=== PATIENT | male | born 1955 | race Caucasian/White ===

== ENCOUNTER 2016-12-10 21:09 | Observation (INO) | payer OTHER ==
[~2016-12-10] VITALS: Ht 182.9 cm; Wt 77.0 kg
[2016-12-10 21:15] VITALS: BP 117/72; PULSE 102; RESP 16; TEMP 97.5; O2SAT 95
[2016-12-11] VITALS (13 sets, daily range): BP systolic 109–146; BP diastolic 55–92; PULSE 66–156; RESP 12–28; TEMP 97.7–98.6; O2SAT 94–97
[2016-12-11] MEDS ORDERED: SODIUM CHLOR 0.9% 1000 ML INJ 1,000 ML IV ONE (02:26)
[2016-12-11] MEDS ORDERED: DILTIAZEM INJ 125 MG in SODIUM CHLORIDE 0.9% INJ 100 ML IV SCH (02:30)
[2016-12-11] MEDS ORDERED: SODIUM CHLORIDE 0.9% FLUSH 5 ML FLUSH IVF PRN ×3 (02:30→07:15)
[2016-12-11] MEDS ORDERED: DILTIAZEM HCL 25 MG/5 ML VIAL IV PUSH ONE (02:30)
[2016-12-11] MEDS ORDERED: ONDANSETRON HCL 4 MG/2 ML VIAL IVP ONE (02:30)
[2016-12-11 02:53] LABS: AUTOMATED NEUTROPHIL # 2.6 TH/MM3 (1.8-7.7); BASOPHIL % 0.4 % (0.0-2.0); EOSINOPHIL # 0.2 TH/MM3 (0-0.4); EOSINOPHIL % 1.9 % (0.0-4.0); HEMATOCRIT 47.3 % (39.0-51.0); HEMO FLAGS AUTO DIFF; LYMPH % 61.7 % (9.0-44.0); MEAN CELL VOLUME 96.4 FL (80.0-100.0); MEAN CORPUSCULAR HEMOGLOBIN 34.2 PG (27.0-34.0); MEAN CORPUSCULAR HGB CONC 35.4 % (32.0-36.0); MONO % 4.4 % (0.0-8.0); NEUT % 31.6 % (16.0-70.0); PLATELET COUNT 153 TH/MM3 (150-450); RED BLOOD COUNT 4.91 MIL/MM3 (4.50-5.90); RED CELL DISTRIBUTION WIDTH 13.4 % (11.6-17.2); WHITE BLOOD COUNT 8.1 TH/MM3 (4.0-11.0)
[2016-12-11 03:14] LABS: ALT (GPT) 76 U/L (12-78); ANION GAP 11 MEQ/L (5-15); AST (GOT) 73 U/L (15-37); BICARBONATE 22.8 MEQ/L (21.0-32.0); BLOOD UREA NITROGEN 4 MG/DL (7-18); CHLORIDE 102 MEQ/L (98-107); GLOMERULAR FILTRATION RATE 91 ML/MIN (>89); MAGNESIUM 1.9 MG/DL (1.5-2.5); POTASSIUM 3.8 MEQ/L (3.5-5.1); SODIUM (NA) 136 MEQ/L (136-145)
[2016-12-11 03:17] LABS: ALKALINE PHOSPHATASE 117 U/L (45-117); TOTAL BILIRUBIN ADULT 0.6 MG/DL (0.2-1.0)
[2016-12-11 03:24] LABS: BASOPHILS 1 % (0-2); EOSINOPHILS 1 % (0-4); NEUTROPHIL # MANUAL DIFF 2.3 TH/MM3 (1.8-7.7); POLYS (SEG NEUTROPHILS) 28 % (16-70); WBC DIFF SAMPLE 100
[2016-12-11 03:25] LABS: SCAN/DIFF FINAL DIFF MANUAL
[2016-12-11 03:26] LABS: PLATELET ESTIMATE SMEAR NORMAL (NORMAL); PLATELET MORPHOLOGY NORMAL (NORMAL)
--- NOTE | 2016-12-11 03:30 | RADRPT ---
EXAM DATE/TIME: 12/11/2016 02:53 [place] COMPARISON: CT BRAIN W/O CONTRAST, October 26, 2013, 22:40. INDICATIONS : Headaches with right ear pain. RADIATION DOSE: 39.05 CTDIvol (mGy) MEDICAL HISTORY : None SURGICAL HISTORY : None. ENCOUNTER: Initial ACUITY: 1 day PAIN SCALE: 7/10 LOCATION: Right cranial TECHNIQUE: Multiple contiguous axial images were obtained of the head. Using automated exposure control and adj ustment of the mA and/or kV according to patient size, radiation dose was kept as low as reasonably a chievable to obtain optimal diagnostic quality images. FINDINGS: CEREBRUM: The ventricles are normal for age. No evidence of midline shift, mass lesion, hemorrhage or acute in farction. No extra-axial fluid collections are seen. POSTERIOR FOSSA: The cerebellum and brainstem are intact. The 4th ventricle is midline. The cerebellopontine angle i s unremarkable. EXTRACRANIAL: Visualized portions of the paranasal sinuses and mastoid air cells are clear. SKULL: The calvaria is intact. No evidence of skull fracture. CONCLUSION: Negative noncontrast head CT. Ricky Jean MD on December 11, 2016 at 3:27 Board Certified Radiologist. This report was verified electronically.
--- NOTE | 2016-12-11 06:24 | PD ---
HPI Chief Complaint: Headache Time Seen by Provider: 02:26 Travel History International Travel<30 days: No Contact w/Intl Traveler<30days: No Traveled to known affect area: No History of Present Illness HPI 61-year-old male presents to the emergency department for complaint of headache 2 weeks. Patient states he had slip and fall backwards hitting his head with loss of consciousness. Patient estimates loss of consciousness was about 30 seconds. Episode was witnessed. There was no seizure activity. Patient has had nausea subsequently. Patient is drinking alcohol daily. Patient's last alcohol intake was on Saturday morning. Patient is not been tremulous or agitated but does have headache and presents now for evaluation. Patient denies any recent febrile illness but has been fatigued. Patient does not report any cough hemoptysis chest pain pleuritic chest pain abdominal pain night sweats or weight loss. PFSH Past Medical History Narrative Medical Asthma peptic ulcer disease tobacco use alcohol use Asthma: Yes Blood Disorders: No Anxiety: No Depression: No Cancer: No Cardiovascular Problems: No Chemotherapy: No Diabetes: No Diminished Hearing: No Endocrine: No Genitourinary: No Immune Disorder: No Implanted Vascular Access Dvce: No Musculoskeletal: Yes Neurologic: Yes Psychiatric: No Reproductive: No Respiratory: No Radiation Therapy: No Thyroid Disease: No Ulcer: Yes Tetanus Vaccination: < 5 Years Influenza Vaccination: Yes Past Surgical History Other Surgery: No Social History Alcohol Use: Yes (DAILY) Tobacco Use: Yes (3 PPD ) Substance Use: Yes Allergies-Medications (Allergen,Severity, Reaction): Coded Allergies: *MDRO Multi-Drug Resistant Organism (Verified Allergy, Unknown, 12/10/16) MRSA Reported Meds & Prescriptions Reported Meds & Active Scripts Active No Active Prescriptions or Reported Medications Review of Systems Except as stated in HPI: all other systems reviewed are Neg General / Constitutional: No: Fever, Chills HENT: Positive: Headaches, No: Congestion Cardiovascular: No: Chest Pain or Discomfort, Palpitations Respiratory: No: Cough Gastrointestinal: Positive: Nausea, No: Vomiting, Diarrhea, Abdominal Pain Genitourinary: No: Incontinence Musculoskeletal: No: Myalgias, Arthralgias Skin: No Rash Neurologic: No: Weakness, Dizziness Psychiatric: No: Anxiety Hematologic/Lymphatic: No: Lymph Node Enlargement Physical Exam Narrative GENERAL: Well-developed well-nourished elderly-appearing male in no acute respiratory distress SKIN: Warm and dry. HEAD: Atraumatic. Normocephalic. No scalp soft tissue swelling or hematoma abrasion or laceration. EYES: Pupils equal and round. No scleral icterus. No injection or drainage. ENT: No nasal bleeding or discharge. Mucous membranes pink and moist. NECK: Trachea midline. No JVD. Supple no meningismus no nuchal rigidity no tenderness to direct palpation CARDIOVASCULAR: Increased Regular rate and rhythm. RESPIRATORY: No accessory muscle use. Clear to auscultation. Breath sounds equal bilaterally. GASTROINTESTINAL: Abdomen soft, non-tender, nondistended. Hepatic and splenic margins not palpable. MUSCULOSKELETAL: Extremities without clubbing, cyanosis, or edema. No obvious deformities. NEUROLOGICAL: Awake and alert. No obvious cranial nerve deficits. Motor grossly within normal limits. Five out of 5 muscle strength in the arms and legs. Normal speech. PSYCHIATRIC: Appropriate mood and affect; insight and judgment normal. Data Data Last Documented VS Vital Signs Date Time Temp Pulse Resp B/P Pulse Ox O2 Delivery O2 Flow Rate FiO2 12/11/16 06:35 71 12 124/58 95 Room Air 12/11/16 02:15 97.7 12/11/16 02:15 2 Orders Complete Blood Count With Diff (12/11/16 02:26) Comprehensive Metabolic Panel (12/11/16 02:26) Ct Brain W/O Iv Contrast(Rout) (12/11/16 02:26) Ecg Monitoring (12/11/16 02:26) Iv Access Insert/Monitor (12/11/16 02:26) Oximetry (12/11/16 02:26) Sodium Chloride 0.9% Flush (Ns Flush) (12/11/16 02:30) Ondansetron Inj (Zofran Inj) (12/11/16 02:30) Sodium Chlor 0.9% 1000 Ml Inj (Ns 1000 M (12/11/16 02:26) Magnesium (Mg) (12/11/16 02:26) Alcohol (Ethanol) (12/11/16 02:26) Drug Screen, Random Urine (12/11/16 02:26) Electrocardiogram (12/11/16 ) Troponin I (12/11/16 02:26) Diltiazem Inj (Cardizem Inj) (12/11/16 02:30) Diltiazem Inj (Cardizem Inj) (12/11/16 02:30) Sodium Chloride 0.9% Flush (Ns Flush) (12/11/16 02:30) Influenzae A/B Antigen (12/11/16 05:41) Place In Observation (12/11/16 ) Vital Signs (Adult) Q4H (12/11/16 06:57) Activity Oob With Assistance (12/11/16 06:57) Inclusion Specialist / Telemetry .CONTINUOUS (12/11/16 06:57) Diet Heart Healthy (12/11/16 Breakfast) Sodium Chloride 0.9% Flush (Ns Flush) (12/11/16 07:00) Sodium Chloride 0.9% Flush (Ns Flush) (12/11/16 09:00) Ondansetron Inj (Zofran Inj) (12/11/16 07:00) Basic Metabolic Panel (Bmp) (12/12/16 06:00) Complete Blood Count With Diff (12/12/16 06:00) Case Management Consult (12/11/16 06:57) Naloxone Inj (Narcan Inj) (12/11/16 07:00) Alcohol Withdrawal Asmt-Ciwa Q4HX18 (12/11/16 06:57) Flumazenil Inj (Romazicon Inj) (12/11/16 07:00) Lorazepam (Ativan) (12/11/16 07:00) Lorazepam Inj (Ativan Inj) (12/11/16 07:00) Lorazepam (Ativan) (12/11/16 07:00) Lorazepam Inj (Ativan Inj) (12/11/16 07:00) Lorazepam Inj (Ativan Inj) (12/11/16 07:00) Lorazepam Inj (Ativan Inj) (12/11/16 07:00) Labs Laboratory Tests Test 12/11/16 02:35 White Blood Count 8.1 TH/MM3 Red Blood Count 4.91 MIL/MM3 Hemoglobin 16.8 GM/DL Hematocrit 47.3 % Mean Corpuscular Volume 96.4 FL Mean Corpuscular Hemoglobin 34.2 PG Mean Corpuscular Hemoglobin 35.4 % Concent Red Cell Distribution Width 13.4 % Platelet Count 153 TH/MM3 Mean Platelet Volume 8.5 FL Neutrophils (%) (Auto) 31.6 % Lymphocytes (%) (Auto) 61.7 % Monocytes (%) (Auto) 4.4 % Eosinophils (%) (Auto) 1.9 % Basophils (%) (Auto) 0.4 % Neutrophils # (Auto) 2.6 TH/MM3 Lymphocytes # (Auto) 5.0 TH/MM3 Monocytes # (Auto) 0.4 TH/MM3 Eosinophils # (Auto) 0.2 TH/MM3 Basophils # (Auto) 0.0 TH/MM3 CBC Comment AUTO DIFF Differential Total Cells 100 Counted Neutrophils % (Manual) 28 % Lymphocytes % 69 % Monocytes % 1 % Eosinophils % 1 % Basophils % 1 % Neutrophils # (Manual) 2.3 TH/MM3 Differential Comment FINAL DIFF MANUAL Atypical Lymphocytes % Platelet Estimate NORMAL Platelet Morphology Comment NORMAL Red Cell Morphology Comment NORMAL Sodium Level 136 MEQ/L Potassium Level 3.8 MEQ/L Chloride Level 102 MEQ/L Carbon Dioxide Level 22.8 MEQ/L Anion Gap 11 MEQ/L Blood Urea Nitrogen 4 MG/DL Creatinine 0.86 MG/DL Estimat Glomerular Filtration 91 ML/MIN Rate Random Glucose 127 MG/DL Calcium Level 8.9 MG/DL Magnesium Level 1.9 MG/DL Total Bilirubin 0.6 MG/DL Aspartate Amino Transf 73 U/L (AST/SGOT) Alanine Aminotransferase 76 U/L (ALT/SGPT) Alkaline Phosphatase 117 U/L Troponin I LESS THAN 0.02 NG/ML Total Protein 7.8 GM/DL Albumin 4.1 GM/DL Ethyl Alcohol Level 66 MG/DL MDM Medical Decision Making Medical Screen Exam Complete: Yes Emergency Medical Condition: Yes Medical Record Reviewed: Yes Interpretation(s) Last Impressions Head CT 12/11/16 0226 Signed Impressions: Service Date/Time: Sunday, December 11, 2016 02:53 - CONCLUSION: Negative noncontrast head CT. Ricky Jean MD CBC & BMP Diagram 12/11/16 02:35 Differential Diagnosis Cephalgia, posttraumatic cephalgia, ICH, CHI, alcohol withdrawal, electronic disturbance, anemia, viral syndrome Narrative Course Patient placed on traffic monitor specialist noted to be in marked SVT of 170 IV access obtained specimens collected patient administered weight-based Cardizem 0.25 mg/kg with immediate resolution of SVT; patient administered IV fluids posttraumatic cephalgia minor CHI ICH viral syndrome dehydration alcohol withdrawal As 6:40 AM blood pressure 12/04/57 heart rate 71 and regular sinus rhythm O2 saturations 95% respirations 12 and nonlabored Physician Communication Physician Communication discussed with Dr Casanova --will admit as obs Diagnosis Primary Impression: Lymphocytosis Additional Impressions: Acute viral syndrome Alcoholism /alcohol abuse Post-traumatic headache, not intractable Qualified Code: G44.309 - Post-traumatic headache, not intractable, unspecified chronicity pattern Scripts No Active Prescriptions or Reported Meds Zahida Umaña MD Dec 11, 2016 06:24
[2016-12-11] MEDS ORDERED: LORazepam 2 MG TAB PO PRN ×2 (07:00→07:15)
[2016-12-11] MEDS ORDERED: LORazepam 1 MG TAB PO PRN ×2 (07:00→07:15)
[2016-12-11] MEDS ORDERED: NALOXONE HCL 0.4 MG/ML AMP IV PRN (07:00)
[2016-12-11] MEDS ORDERED: ONDANSETRON HCL 4 MG/2 ML VIAL IVP PRN (07:00)
[2016-12-11] MEDS ORDERED: LORazepam 2 MG/ML VIAL IV PUSH PRN ×8 (07:00→07:15)
[2016-12-11] MEDS ORDERED: FLUMAZENIL 0.5 MG/5 ML VIAL IV PUSH PRN ×2 (07:00→07:15)
[2016-12-11] MEDS ORDERED: SODIUM CHLORIDE 0.9% FLUSH 5 ML FLUSH FLUSH PRN (07:00)
[2016-12-11] MEDS ORDERED: THIAMINE INJ 100 MG in SODIUM CHLORIDE 0.9% INJ 100 ML IV ONE (09:00)
[2016-12-11] MEDS ORDERED: SODIUM CHLORIDE 0.9% FLUSH 5 ML FLUSH IVF SCH (09:00)
[2016-12-11] MEDS: SODIUM CHLORIDE 0.9% FLUSH 5 ML FLUSH FLUSH SCH ×2 (09:29→23:43)
[2016-12-11] MEDS ORDERED: DILTIAZEM-CD 120 MG CAP ER PO ONE (12:00)
--- NOTE | 2016-12-11 15:17 | EKG ---
Date Performed: 12/11/2016 Time Performed: 02:19:59 PTAGE: 61 years EKG: SUPRAVENTRICULAR TACHYCARDIA WITH OCCASIONAL PREMATURE VENTRICULAR CONTRACTIONS. THE RHYTHM IS PROBABLY ATRIAL FLUTTER WITH 2-1 CONDUCTION, BUT A RHYTHM STRIP WOULD BE NECESSARY TO MAKE AN ACC URATE DIAGNOSIS. PREMATURE COMPLEXES, POSSIBLE ATRIAL FLUTTER WITH MINIMAL ST DEPRESSION SINCE THE UT IOR TRACING THE RHYTHM DISTURBANCES IS NEW. PATIENT DEVELOPED INFERIOR ST ELEVATION THAT IS ALSO NEW AND INFERIOR WALL INJURY WITH TACHYCARDIA CANNOT BE EXCLUDED. Clinical correlation is recommended to access the series of changes ABNORMAL RHYTHM ECG NO PREVIOUS TRACING DOCTOR: Marquita Ferrara Interpretating Date/Time 12/11/2016 15:16:54
--- NOTE | 2016-12-11 23:53 | HHI.HP ---
[facility] Ad[facility] Diagnosis lymphocytosis; svt; alcohol abuse Diagnoses: Travel History International Travel<30 Days: No Contact w/Intl Traveler <30 Da: No Traveled to Known Affected Are: No History of Present Illness 61-year-old male with a chronic history of alcoholism. He says he passed out at a bar last night and fell to the floor, had been drinking heavily. He says he hit his head, but is not sure where. He reports several month history of poor balance, either walking to one side, or the other. He denies any seizures. Patient drinks two to 4 packs of beer a day. He denies any unilateral weakness. No focal signs. Patient does report a frontal headache which is improving. Denies blurry vision. Denies any chest pain or shortness of breath. Patient did have episode of SVT in the ER which was controlled with diltiazem. Review of Systems Other performed and negative except for HPI and past medical history. Past Family Social History Past Medical History Patient denies any medical conditions, however per chart review has history of asthma, ulcer Past Surgical History reports surgery to her left arm in the past. Denies any other surgeries. Per chart review patient also had surgery on his left ankle. Reported Medications patient denies taking any medications. Allergies: Coded Allergies: *MDRO Multi-Drug Resistant Organism (Verified Allergy, Unknown, 12/10/16) MRSA Family History Patient reports both father and mother from aneurysm Social History Patient reports smoking 3 packs per day for the past 40 years. Patient drinks to 4 packs of beer every day. He denies any history of seizures. Patient does report marijuana use occasionally. Physical Exam Vital Signs Vital Signs Date Time Temp Pulse Resp B/P Pulse Ox O2 Delivery O2 Flow Rate FiO2 12/11/16 23:27 98.6 69 20 117/65 95 12/11/16 19:50 94 21 12/11/16 18:15 98.5 110 18 146/72 95 12/11/16 18:14 66 12/11/16 13:00 72 20 127/57 96 12/11/16 11:00 100 18 136/60 97 12/11/16 10:15 97 Nasal Cannula 2.00 12/11/16 09:30 75 12 135/61 97 Room Air 12/11/16 07:46 98.4 78 16 109/55 97 Nasal Cannula 2 12/11/16 06:35 71 12 124/58 95 Room Air 12/11/16 06:00 74 18 110/70 97 Room Air 12/11/16 02:15 97.7 156 28 139/92 94 Room Air 12/11/16 02:15 28 95 Nasal Cannula 2 12/11/16 02:15 154 28 94 Room Air Physical Exam GENERAL: This is a well-nourished, well-developed patient. 60 while sleeping. 120 while awake. Alert and oriented 3. SKIN: No rashes, ecchymoses or lesions. Cool and dry. HEAD: Atraumatic. Normocephalic. No temporal or scalp tenderness. EYES: Pupils equal round and reactive. Extraocular motions intact. No scleral icterus. No injection or drainage. ENT: Nose without bleeding, purulent drainage or septal hematoma. Throat without erythema, tonsillar hypertrophy or exudate. Uvula midline. Airway patent. NECK: Trachea midline. No JVD or lymphadenopathy. Supple, nontender, no meningeal signs. CARDIOVASCULAR: Regular rate and rhythm without murmurs, gallops, or rubs. RESPIRATORY: Clear to auscultation. Breath sounds equal bilaterally. No wheezes , rales, or rhonchi. GASTROINTESTINAL: Abdomen soft, non-tender, nondistended. No hepato-splenomegaly , or palpable masses. No guarding. MUSCULOSKELETAL: Extremities without clubbing, cyanosis, or edema. No joint tenderness, effusion, or edema noted. No calf tenderness. Negative Homans sign bilaterally. NEUROLOGICAL: Awake and alert. Cranial nerves II through XII intact. Motor and sensory grossly within normal limits. Five out of 5 muscle strength in all muscle groups. slight ataxia bilaterally.Normal speech. Laboratory Laboratory Tests Test 12/11/16 02:35 White Blood Count 8.1 Red Blood Count 4.91 Hemoglobin 16.8 Hematocrit 47.3 Mean Corpuscular Volume 96.4 Mean Corpuscular Hemoglobin 34.2 Mean Corpuscular Hemoglobin 35.4 Concent Red Cell Distribution Width 13.4 Platelet Count 153 Mean Platelet Volume 8.5 Neutrophils (%) (Auto) 31.6 Lymphocytes (%) (Auto) 61.7 Monocytes (%) (Auto) 4.4 Eosinophils (%) (Auto) 1.9 Basophils (%) (Auto) 0.4 Neutrophils # (Auto) 2.6 Lymphocytes # (Auto) 5.0 Monocytes # (Auto) 0.4 Eosinophils # (Auto) 0.2 Basophils # (Auto) 0.0 CBC Comment AUTO DIFF Differential Total Cells 100 Counted Neutrophils % (Manual) 28 Lymphocytes % 69 Monocytes % 1 Eosinophils % 1 Basophils % 1 Neutrophils # (Manual) 2.3 Differential Comment FINAL DIFF MANUAL Atypical Lymphocytes Platelet Estimate NORMAL Platelet Morphology Comment NORMAL Red Cell Morphology Comment NORMAL Sodium Level 136 Potassium Level 3.8 Chloride Level 102 Carbon Dioxide Level 22.8 Anion Gap 11 Blood Urea Nitrogen 4 Creatinine 0.86 Estimat Glomerular Filtration 91 Rate Random Glucose 127 Calcium Level 8.9 Magnesium Level 1.9 Total Bilirubin 0.6 Aspartate Amino Transf 73 (AST/SGOT) Alanine Aminotransferase 76 (ALT/SGPT) Alkaline Phosphatase 117 Troponin I LESS THAN 0.02 Total Protein 7.8 Albumin 4.1 Ethyl Alcohol Level 66 Date/Time Procedure Status Source Growth 12/11/16 05:45 Influenza Types A,B Antigen (PIETRO) - Final Complete Nasal Washing NEGATIVE FOR FLU A AND B ANTIGEN.... Result Diagram: 12/11/1623412/11/16234 Assessment and Plan Assessment and Plan //Fall at bar. //Mild ataxia. Likely alcohol induced. Continue thiamine The Likely secondary to inebriation. Per report this may have been a slip and fall. Patient with a little recollection. CT head negative. Headache improving. Supportive care Alcoholism With possible alcohol withdrawalCIWA protocol. Schedule Librium. Continue to monitor Supraventricular tachycardia. Oddly enough, normal heart rate while sleeping, elevated when awake. Possibly secondary to anxiety. Improved after diltiazem in the ER. Will continue 120 mg of long-acting diltiazem daily. Expect heart rate to improve with treatment of alcohol withdrawal. Tobacco abuse. Cessation counseling provided. Strongly advised Marijuana abuse. Cessation strongly advised Prophylaxis. Patient is ambulatory. SCDs. Discussed Condition With patient still with intermittent tachycardia up to 130s, however in the 60s while asleep. Continue diltiazem. Continue Librium. Possible discharge tomorrow if vital signs stable Rob Bridges MD Dec 11, 2016 23:53
[2016-12-12] MEDS ORDERED: chlordiazePOXIDE 25 MG CAP PO PRN
[2016-12-12 03:17] LABS: AMPHETAMINE, URINE NEG (NEG); BARBITURATES, URINE NEG (NEG); COCAINE, URINE NEG (NEG)
[2016-12-12 03:37] VITALS: BP 109/61; PULSE 54; RESP 18; TEMP 98.6; O2SAT 96
[2016-12-12 06:44] LABS: AUTOMATED NEUTROPHIL # 1.8 TH/MM3 (1.8-7.7); BASOPHIL % 0.8 % (0.0-2.0); EOSINOPHIL # 0.1 TH/MM3 (0-0.4); EOSINOPHIL % 1.8 % (0.0-4.0); HEMATOCRIT 41.8 % (39.0-51.0); HEMO FLAGS DIFF FINAL; LYMPH % 59.4 % (9.0-44.0); LYMPHOCYTE # 3.3 TH/MM3 (1.0-4.8); MEAN CELL VOLUME 98.2 FL (80.0-100.0); MEAN CORPUSCULAR HEMOGLOBIN 33.1 PG (27.0-34.0); MEAN CORPUSCULAR HGB CONC 33.7 % (32.0-36.0); MONO % 6.3 % (0.0-8.0); NEUT % 31.7 % (16.0-70.0); PLATELET COUNT 115 TH/MM3 (150-450); RED BLOOD COUNT 4.26 MIL/MM3 (4.50-5.90); RED CELL DISTRIBUTION WIDTH 13.1 % (11.6-17.2); WHITE BLOOD COUNT 5.6 TH/MM3 (4.0-11.0)
[2016-12-12 07:09] LABS: POTASSIUM 3.8 MEQ/L (3.5-5.1)
[2016-12-12 07:26] VITALS: PULSE 66
[2016-12-12] MEDS: SODIUM CHLORIDE 0.9% FLUSH 5 ML FLUSH FLUSH SCH (08:35)
[2016-12-12 08:47] VITALS: BP 124/62; PULSE 57; RESP 18; TEMP 97; O2SAT 97
[2016-12-12] MEDS ORDERED: DILTIAZEM-CD 120 MG CAP ER PO SCH (09:00)
[2016-12-12 09:15] VITALS: O2SAT 97
[2016-12-12] MEDS ORDERED: INFLUENZA VIRUS VACCINE (QUADRIVALENT) 0.5 ML SYR IM ONE (10:00)
[2016-12-12] MEDS ORDERED: PNEUMOCOCCAL POLYVALENT INJ 25 MCG/0.5 ML SYR IM ONE (10:00)
--- NOTE | 2016-12-12 10:19 | HHI.PR ---
Subjective Remarks Follow-up for fall and a CT. The patient does have a mild frontal headache from where he struck his head. He denies any weakness, tremor, vision changes. He's been ambulating to the restroom with no difficulties. He states that he had been having palpitations, improved since starting on Cardizem. He states he has a chronic cough, and is a little short of breath. Feels comfortable going home today. Objective Vitals Vital Signs Date Time Temp Pulse Resp B/P Pulse Ox O2 Delivery O2 Flow Rate FiO2 12/12/16 09:15 97 21 12/12/16 08:47 97.0 57 18 124/62 97 12/12/16 03:37 98.6 54 18 109/61 96 12/11/16 23:27 98.6 69 20 117/65 95 12/11/16 23:00 69 12/11/16 19:50 94 21 12/11/16 18:15 98.5 110 18 146/72 95 12/11/16 18:14 66 12/11/16 13:00 72 20 127/57 96 12/11/16 11:00 100 18 136/60 97 Result Diagram: 12/12/16 0605 12/12/16 0605 Imaging Last Impressions Head CT 12/11/16 0226 Signed Impressions: Service Date/Time: Sunday, December 11, 2016 02:53 - CONCLUSION: Negative noncontrast head CT. Ricky Jean MD Objective Remarks GENERAL: Well-developed well-nourished. In no acute distress. SKIN: Warm and dry. No lesions noted. HEENT: Normocephalic. Pupils equal and round. EOMs intact. Mucous membranes pink and moist. CARDIOVASCULAR: Regular rate and rhythm. No murmur appreciated. RESPIRATORY: No accessory muscle use. Clear to auscultation. Breath sounds equal bilaterally. GASTROINTESTINAL: Abdomen soft, non-tender, nondistended. Bowel sounds x4. MUSCULOSKELETAL: No obvious deformities. No clubbing or cyanosis. No edema. NEUROLOGICAL: Awake and alert. No focal neurological deficits. Moves upper and lower extremities spontaneously. Normal speech. Strength 5/5. PSYCHIATRIC: Appropriate mood and affect; insight and judgment normal. A/P Assessment and Plan //Fall at bar while intoxicated. //Mild ataxia. Likely alcohol induced. Improved today the patient is sober. CT head negative. Headache improving. Thiamine Supportive care Alcoholism No signs of withdrawal at this time. CIWA protocol. Cessation counseling Supraventricular tachycardia: Telemetry reviewed. Improved overnight after starting on Cardizem yesterday. Continue Cardizem. Outpatient PCP follow-up. Cough, shortness of breath: Mild. Satting well on room air. Lungs clear. Afebrile with no leukocytosis. No signs of infectious etiology. Likely secondary to chronic tobacco abuse, needs cessation. Tobacco abuse: Cessation counseling provided. Prophylaxis. Patient is ambulatory. SCDs. Written by Andrea Aguayo, acting as scribe for Dr. Bishop on 12/12/16 at 10:18. The documentation accurately reflects the work performed [id number] by me Dr. Bishop on 12/12/16 at 10:18. Discharge Planning Discharge patient to home Condition on discharge: Improved Heart healthy Diet as tolerated Regular activity Rx written: Cardizem, thiamine Follow-up with primary care physician Andrea Aguayo Dec 12, 2016 10:19 Vilma Bishop MD Dec 12, 2016 13:32
[2016-12-12] MEDS ORDERED: CARD120C4 PO (10:20)
[2016-12-12] MEDS ORDERED: THIA100T PO (10:20)
[2016-12-12] MEDS ORDERED: THIAMINE HCL 100 MG TAB PO ONE (11:00)
[2016-12-12 11:34] VITALS: BP 144/88; PULSE 94; RESP 18; TEMP 98.3; O2SAT 95
[2016-12-12 12:08] VITALS: BP 126/62; PULSE 57; RESP 18; TEMP 98; O2SAT 98
== END 2016-12-12 19:55 | disposition home or self-care (01) ==
LOC: NEPC 21:09 → NEDA 12-11 07:10 → NEPHCDU 12-11 13:17
PROVIDERS: ADMIT Hospitalist; ATTEND Hospitalist
DX: G44.309 Post-traumatic headache, unspecified, not intractable (principal); F10.239 Alcohol dependence with withdrawal, unspecified; D72.820 Lymphocytosis (symptomatic); I47.1 Supraventricular tachycardia; W01.0XXA Fall on same level from slipping, tripping and stumbling without subsequent striking against object, initial encounter; R11.0 Nausea; J45.909 Unspecified asthma, uncomplicated; F17.210 Nicotine dependence, cigarettes, uncomplicated; R27.0 Ataxia, unspecified; Z87.11 Personal history of peptic ulcer disease; Z23 Encounter for immunization
CPT/HCPCS: 70450; 80048; 80053; 80307; 80320; 83735; 84484; 85007; 85025; 85027; 87641; 87804; 90732; 93005; 96361; 96374; 96375; 97163; 99285; G0008; G0009; G0378; G8987; G8988; J2405; J3411; J7030; Q2038; 90471; 90472; 90686

== ENCOUNTER 2017-11-18 08:53 | Inpatient (IN) | payer OTHER ==
[2017-11-18] VITALS (7 sets, daily range): BP systolic 127–154; BP diastolic 64–88; PULSE 55–101; RESP 18; TEMP 98–98.9; O2SAT 92–97
[~2017-11-18] VITALS: Ht 177.8 cm; Wt 73.2 kg
[~2017-11-18 08:53] MED LIST: CARD120C4 PO; THIA100T PO
[2017-11-18] MEDS ORDERED: SODIUM CHLORIDE 0.9% FLUSH 10 ML FLUSH IVF PRN (09:45)
--- NOTE | 2017-11-18 09:51 | PD ---
HPI Chief Complaint: Neuro Symptoms/ Deficits Time Seen by Provider: 09:35 Travel History International Travel<30 days: No Contact w/Intl Traveler<30days: No Traveled to known affect area: No History of Present Illness HPI A 62 year old male presents to the emergency department for hand numbness. This has been going on for 2 weeks and is happening more frequently. His left hand gets numb and he describes is as feeling like pins and needles. During the episode he has difficulty holding and picking up things. The episodes last about 15 minutes and happen about every hour. Some episodes begin with a bilateral headache in the temporal region and some are associated with vision changes in his right eye. This happened to him about 3 months ago and reports a negative workup in the ED. He has no fevers, no pain, no trauma, no chest pain, no numbness anywhere else, and no other symptoms. History Past Medical History Narrative Medical alcohol abuse, secondary polycythemia, COPD, depression Past Surgical History Narrative Surgical hx of orthopedic foot surgery Family History Family History: Negative Social History Alcohol Use: Yes (occas) Tobacco Use: Yes (2 PPD ) Allergies-Medications (Allergen,Severity, Reaction): Coded Allergies: *MDRO Multi-Drug Resistant Organism (Verified Adverse Reaction, Unknown, ) MRSA (arm) - 06/01/08 MRSA PCR Screen #1 NEGATIVE - 12/12/16 Reported Meds & Prescriptions Reported Meds & Active Scripts Active Review of Systems General / Constitutional: No: Fever, Chills Cardiovascular: No: Chest Pain or Discomfort Respiratory: Positive: Cough, No: Shortness of Breath Gastrointestinal: No: Nausea, Vomiting Musculoskeletal: Positive: Weakness Neurologic: Positive: Headache, No: Dizziness, Syncope Physical Exam Narrative GENERAL: A WDWN male in no acute respiratory distress. SKIN: Warm and dry. HEAD: Atraumatic. Normocephalic. EYES: Pupils equal and round. No scleral icterus. No injection or drainage. ENT: No nasal bleeding or discharge. Mucous membranes pink and moist. NECK: Trachea midline. No JVD. CARDIOVASCULAR: Regular rate and rhythm. RESPIRATORY: No accessory muscle use. Clear to auscultation. Breath sounds equal bilaterally. GASTROINTESTINAL: Abdomen soft, non-tender, nondistended. Hepatic and splenic margins not palpable. MUSCULOSKELETAL: Extremities without clubbing, cyanosis, or edema. Pea sized raised, nontender, palpable bumps below 4th digit B/L NEUROLOGICAL: Awake and alert. No obvious cranial nerve deficits. Motor grossly within normal limits. Five out of 5 muscle strength in the arms and legs. Normal speech. Numbness and tingling on the palmar aspect of the left hand. PSYCHIATRIC: Appropriate mood and affect; insight and judgment normal. Data Data Last Documented VS Vital Signs Date Time Temp Pulse Resp B/P (MAP) Pulse Ox O2 Delivery O2 Flow Rate FiO2 11/18/17 09:52 65 18 97 Room Air 11/18/17 08:55 98.4 Orders Orders Prothrombin Time / Inr (Pt) (11/18/17 09:35) Act Partial Throm Time (Ptt) (11/18/17 09:35) Complete Blood Count With Diff (11/18/17 09:35) Comprehensive Metabolic Panel (11/18/17 09:35) Creatine Kinase (Cpk) (11/18/17 09:35) Troponin I (11/18/17 09:35) Urinalysis - C+S If Indicated (11/18/17 09:35) Ct Brain W/O Iv Contrast(Rout) (11/18/17 09:35) Ecg Monitoring (11/18/17 09:35) Iv Access Insert/Monitor (11/18/17 09:35) Oximetry (11/18/17 09:35) Sodium Chloride 0.9% Flush (Ns Flush) (11/18/17 09:45) Admit Order (Ed Use Only) (11/18/17 11:34) Labs Laboratory Tests Test 11/18/17 09:41 11/18/17 09:44 White Blood Count 11.3 TH/MM3 Red Blood Count 4.76 MIL/MM3 Hemoglobin 15.5 GM/DL Hematocrit 45.1 % Mean Corpuscular Volume 94.8 FL Mean Corpuscular Hemoglobin 32.5 PG Mean Corpuscular Hemoglobin Concent 34.3 % Red Cell Distribution Width 12.4 % Platelet Count 207 TH/MM3 Mean Platelet Volume 10.1 FL Neutrophils (%) (Auto) 62.5 % Lymphocytes (%) (Auto) 33.1 % Monocytes (%) (Auto) 3.6 % Eosinophils (%) (Auto) 0.3 % Basophils (%) (Auto) 0.5 % Neutrophils # (Auto) 7.1 TH/MM3 Lymphocytes # (Auto) 3.7 TH/MM3 Monocytes # (Auto) 0.4 TH/MM3 Eosinophils # (Auto) 0.0 TH/MM3 Basophils # (Auto) 0.1 TH/MM3 CBC Comment DIFF FINAL Differential Comment Prothrombin Time 10.2 SEC Prothromb Time International Ratio 1.0 RATIO Activated Partial Thromboplast Time 22.6 SEC Blood Urea Nitrogen 11 MG/DL Creatinine 1.24 MG/DL Random Glucose 452 MG/DL Total Protein 7.8 GM/DL Albumin 3.9 GM/DL Calcium Level 8.9 MG/DL Alkaline Phosphatase 158 U/L Aspartate Amino Transf (AST/SGOT) 58 U/L Alanine Aminotransferase (ALT/SGPT) 72 U/L Total Bilirubin 0.7 MG/DL Sodium Level 128 MEQ/L Potassium Level 4.5 MEQ/L Chloride Level 92 MEQ/L Carbon Dioxide Level 27.2 MEQ/L Anion Gap 9 MEQ/L Estimat Glomerular Filtration Rate 59 ML/MIN Total Creatine Kinase 144 U/L Troponin I LESS THAN 0.02 NG/ML Urine Color LIGHT-YELLOW Urine Turbidity CLEAR Urine pH 5.5 Urine Specific [place] 1.038 Urine Protein NEG mg/dL Urine Glucose (UA) 1000 mg/dL Urine Ketones 40 mg/dL Urine Occult Blood NEG Urine Nitrite NEG Urine Bilirubin NEG Urine Urobilinogen LESS THAN 2.0 MG/DL Urine Leukocyte Esterase NEG Urine WBC LESS THAN 1 /hpf Microscopic Urinalysis Comment CATH-CULT NOT IND MDM Medical Decision Making Medical Screen Exam Complete: Yes Emergency Medical Condition: Yes Differential Diagnosis TIA, neuropathy, electrolyte abnormality, hyperglycemia Narrative Course This is a 62-year-old male who presents today from the [place] stating that he told to come here for rule out TIA. The patient has a history of hypertension. He states she's not been taking his medications. The patient was noted to have a blood sugar over 400 here. He has no history of diabetes. The patient likely has neuropathy and paresthesias from his hyperglycemia. He's been given a liter of IVD fluids. He's also had insolent written. The case was discussed with Dr. Solomon, [facility] hospitalist, who was admit the patient to his service. Patient was also noted to have a sodium of 128. Diagnosis Primary Impression: New onset type 2 diabetes mellitus Additional Impressions: Hyponatremia parasthesias Admitting Information Admitting Physician Requests: Admit Bhargav Zuluaga MD Nov 18, 2017 09:51
[2017-11-18 10:04] LABS: BILIRUBIN, URINE NEG (NEG); BLOOD, URINE NEG (NEG); GLUCOSE,URINE 1000 mg/dL (NEG); KETONE, URINE 40 mg/dL (NEG); NITRITE,URINE NEG (NEG); PH, URINE 5.5 (5.0-8.5); URINE COLOR LIGHT-YELLOW (YELLW/STRAW); URINE LEUKOCYTE ESTERASE NEG (NEG)
[2017-11-18 10:04] LABS: AUTOMATED NEUTROPHIL # 7.1 TH/MM3 (1.8-7.7); BASOPHIL # 0.1 TH/MM3 (0-0.2); BASOPHIL % 0.5 % (0.0-2.0); EOSINOPHIL % 0.3 % (0.0-4.0); HEMATOCRIT 45.1 % (39.0-51.0); HEMOGLOBIN 15.5 GM/DL (13.0-17.0); LYMPH % 33.1 % (9.0-44.0); LYMPHOCYTE # 3.7 TH/MM3 (1.0-4.8); MEAN CELL VOLUME 94.8 FL (80.0-100.0); MEAN CORPUSCULAR HEMOGLOBIN 32.5 PG (27.0-34.0); MEAN CORPUSCULAR HGB CONC 34.3 % (32.0-36.0); MEAN PLATELET VOLUME 10.1 FL (7.0-11.0); MONO % 3.6 % (0.0-8.0); MONOCYTE # 0.4 TH/MM3 (0-0.9); NEUT % 62.5 % (16.0-70.0); PLATELET COUNT 207 TH/MM3 (150-450); RED BLOOD COUNT 4.76 MIL/MM3 (4.50-5.90); RED CELL DISTRIBUTION WIDTH 12.4 % (11.6-17.2); WHITE BLOOD COUNT 11.3 TH/MM3 (4.0-11.0)
[2017-11-18 10:14] LABS: PROTHROMBIN TIME - PATIENT 10.2 SEC (9.8-11.6)
[2017-11-18 10:21] LABS: ALBUMIN 3.9 GM/DL (3.4-5.0); ALKALINE PHOSPHATASE 158 U/L (45-117); ALT (GPT) 72 U/L (12-78); AST (GOT) 58 U/L (15-37); BICARBONATE 27.2 MEQ/L (21.0-32.0); BLOOD UREA NITROGEN 11 MG/DL (7-18); CALCIUM 8.9 MG/DL (8.5-10.1); CHLORIDE 92 MEQ/L (98-107); CREATININE 1.24 MG/DL (0.60-1.30); GLOMERULAR FILTRATION RATE 59 ML/MIN (>89); SODIUM (NA) 128 MEQ/L (136-145); TOTAL BILIRUBIN ADULT 0.7 MG/DL (0.2-1.0); TOTAL PROTEIN 7.8 GM/DL (6.4-8.2); TROPONIN I LESS THAN 0.02 NG/ML (0.02-0.05)
--- NOTE | 2017-11-18 10:26 | RADRPT ---
EXAM DATE/TIME: 11/18/2017 10:13 [facility] COMPARISON: CT BRAIN W/O CONTRAST, December 11, 2016, 2:53. INDICATIONS : Numbness and tingling left hand for 2 weeks RADIATION DOSE: 34.97 CTDIvol (mGy) MEDICAL HISTORY : Ulcers. SURGICAL HISTORY : None. ENCOUNTER: Initial ACUITY: 2 weeks PAIN SCALE: 0/10 LOCATION: cranial TECHNIQUE: Multiple contiguous axial images were obtained of the head. Using automated exposure control and adj ustment of the mA and/or kV according to patient size, radiation dose was kept as low as reasonably a chievable to obtain optimal diagnostic quality images. DICOM format image data is available electro nically for review and comparison. FINDINGS: CEREBRUM: The ventricles are normal for age. No evidence of midline shift, mass lesion, hemorrhage or acute in farction. No extra-axial fluid collections are seen. POSTERIOR FOSSA: The cerebellum and brainstem are intact. The 4th ventricle is midline. The cerebellopontine angle i s unremarkable. EXTRACRANIAL: The visualized portion of the orbits is intact. SKULL: The calvaria is intact. No evidence of skull fracture. CONCLUSION: Negative for acute process Torres Smith MD FACR on November 18, 2017 at 10:23 Board Certified Radiologist. This report was verified electronically.
[2017-11-18 10:27] LABS: GLUCOSE,RANDOM 452 MG/DL (74-106)
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
[2017-11-18] MEDS ORDERED: LORazepam 2 MG/ML VIAL IV PUSH PRN ×4 (11:45)
[2017-11-18] MEDS ORDERED: DEXTROSE 50% IN WATER 50 ML VIAL(D50) IV PUSH PRN (11:45)
[2017-11-18] MEDS ORDERED: LORazepam 1 MG TAB PO PRN (11:45)
[2017-11-18] MEDS ORDERED: GLUCAGON 1 MG/ML VIAL OTHER PRN (11:45)
[2017-11-18] MEDS ORDERED: FLUMAZENIL 0.5 MG/5 ML VIAL IV PUSH PRN (11:45)
[2017-11-18] MEDS ORDERED: LORazepam 2 MG TAB PO PRN (11:45)
[2017-11-18] MEDS ORDERED: INSULIN ASPART SUPPLEMENTAL SCALE SQ SCH (12:00)
[2017-11-18] MEDS: SODIUM CHLOR 0.9% 1000 ML INJ 1,000 ML IV SCH ×2 (13:19→23:37)
--- NOTE | 2017-11-18 14:31 | RADRPT ---
EXAM DATE/TIME: 11/18/2017 12:26 [facility] COMPARISON: No previous studies available for comparison. INDICATIONS : Left hand numbness. MEDICAL HISTORY : Diabetes mellitus type 2. SURGICAL HISTORY : Lt ankle ORIF ENCOUNTER: Subsequent ACUITY: 2 weeks PAIN SCORE: 0/10 LOCATION: cranial TECHNIQUE: Multiplanar, multisequence MRI examination of the cervical spine was performed. FINDINGS: VERTEBRAE: Normal vertebral body height. Homogeneous marrow signal. ALIGNMENT: No evidence of subluxation. CORD: Normal configuration and signal. POST FOSSA: The cerebellar tonsils are normal in position. C2-C3: The thecal sac has a normal configuration. There is no evidence of disc herniation or spinal canal s tenosis. The neural foramina are patent bilaterally. C3-C4: Minimal generalized disc bulging without spinal stenosis. Mild bilateral neural foramina encroachmen t. C4-C5: Minimal bulging present. There is no significant spinal stenosis. Mild left-sided neural foramina e ncroachment. C5-C6: Minimal degenerative changes in cervical spine. Goals etiology for patient's number and. C6-C7: The thecal sac has a normal configuration. There is no evidence of disc herniation or spinal canal s tenosis. The neural foramina are patent bilaterally. C7-T1: The thecal sac has a normal configuration. There is no evidence of disc herniation or spinal canal s tenosis. The neural foramina are patent bilaterally. CONCLUSION: Minimal degenerative changes as described above worst at C5 on the left. I don't see enough findings to account for patient's symptomatology. There is no spinal stenosis. Torres Smith MD FACR on November 18, 2017 at 14:26 Board Certified Radiologist. This report was verified electronically.
[2017-11-18 16:05] LABS: HEMOGLOBIN A1C 12.4 % (4.3-6.0)
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
--- NOTE | 2017-11-18 17:23 | RADRPT ---
EXAM DATE/TIME: 11/18/2017 16:30 [facility] COMPARISON: No previous studies available for comparison. INDICATIONS : Transient ischemic attack. MEDICAL HISTORY : Ulcer. MRSA, arm 2008. SURGICAL HISTORY : Orthopedic surgery, right foot, left ankle. ENCOUNTER: Initial ACUITY: 1 day PAIN SCORE: 0/10 LOCATION: Bilateral neck PEAK SYSTOLIC VELOCITIES (cm/sec): ICA/CCA RATIO: Right: 0.6 Left: 0.8 ICA: Right: 45 Left: 88 CCA: Right: 74 Left: 114 ECA: Right: 165 Left: 127 VERTEBRAL: Right: Non-visualized absent Left: 52 antegrade Elevated flow velocities and ICA/CCA ratios have been found to correlate with increased degrees of vessel stenosis, calculated as percentage of diameter relative to a normal segment of distal ICA/CCA FINDINGS: RIGHT CAROTID: No significant stenosis is visualized. The waveforms are within normal limits. LEFT CAROTID: No significant stenosis is visualized. The waveforms are within normal limits. VERTEBRAL ARTERIES: Antegrade flow is seen in both vertebral arteries. MISCELLANEOUS: None. CONCLUSION: Negative for hemodynamically significant stenosis Torres Smith MD FACR on November 18, 2017 at 17:19 Board Certified Radiologist. This report was verified electronically.
[2017-11-18] MEDS: INSULIN ASPART SUPPLEMENTAL SCALE SQ SCH ×3 (18:00→23:38)
--- NOTE | 2017-11-18 19:31 | RADRPT ---
EXAM DATE/TIME: 11/18/2017 18:54 [facility] COMPARISON: CT BRAIN W/O CONTRAST, November 18, 2017, 10:13. CT BRAIN W/O CONTRAST, December 11, 2016, 2:53. INDICATIONS : CVA. Left side weakness. MEDICAL HISTORY : Chronic obstructive pulmonary disease. Hypertension. SURGICAL HISTORY : Left foot. ENCOUNTER: Subsequent ACUITY: 3 weeks PAIN SCORE: 5/10 LOCATION: cranial TECHNIQUE: Multiplanar, multisequence MRI of the brain was performed without contrast. FINDINGS: CEREBRUM: The ventricles are normal for age. There is an area of increased signal in the jones matter in the rig ht temporo-occipital region measuring approximately 1.9 x 1.5 cm across. I believe to subacute stroke . Even retrospectively difficult to see on CT scan. No extraaxial fluid collections are seen. The p ituitary gland and suprasellar cistern are normal in configuration. WHITE MATTER: No significant signal abnormalities are seen in the white matter. POSTERIOR FOSSA: The cerebellum and brainstem are intact. The 4th ventricle is midline. The cerebellopontine angle is unremarkable. The cerebellar tonsils are normal in position. DIFFUSION IMAGING: There is a 5 mm area of increased signal just posterior to where I believe subacute stroke is in the right occipital region could be an additional small acute stroke. EXTRACRANIAL: The visualized portions of the orbits and paranasal sinuses are unremarkable. CONCLUSION: 2 abnormal areas of signal including an elongated area in the jones matter I believe subacute stroke i n the questionable 5 mm area of increased signal in the diffusion weighted sequences (series 7 image 39) could be a minor acute stroke. Leonel Mc MD on November 18, 2017 at 19:27 Board Certified Radiologist. This report was verified electronically.
[2017-11-18] MEDS: INSULIN DETEMIR 100 UNITS/ML VIAL SQ SCH (23:38)
[2017-11-19] VITALS (19 sets, daily range): BP systolic 93–185; BP diastolic 52–111; PULSE 50–191; RESP 18–25; TEMP 98.5–99.7; O2SAT 91–100
[2017-11-19 08:18] LABS: BICARBONATE 28.8 MEQ/L (21.0-32.0); CALCIUM 8.6 MG/DL (8.5-10.1); CREATININE 0.79 MG/DL (0.60-1.30)
--- NOTE | 2017-11-19 09:43 | HHI.PR ---
Subjective Remarks in no acute distress. still with some tingling of the left hand. blood sugar trend noted. d/w the special educator. Objective Vitals Vital Signs Date Time Temp Pulse Resp B/P (MAP) Pulse Ox O2 Delivery O2 Flow Rate FiO2 11/19/17 08:10 54 11/19/17 08:05 98.5 51 18 128/61 (83) 97 11/19/17 04:10 50 11/19/17 03:47 98.9 62 18 111/65 (80) 96 11/19/17 00:00 60 11/18/17 23:54 98.9 65 18 135/77 (96) 95 11/18/17 20:58 55 11/18/17 20:50 98.0 87 18 154/74 (100) 97 11/18/17 15:45 98.0 59 18 127/64 (85) 92 11/18/17 15:41 11/18/17 12:01 59 18 128/78 (95) 96 Room Air 11/18/17 09:52 65 18 97 Room Air I/O 11/18/17 11/18/17 11/18/17 11/19/17 11/19/17 11/19/17 07:00 15:00 23:00 07:00 15:00 23:00 Intake Total 240 ml Balance 240 ml Intake Oral 240 ml # Voids 1 # Bowel Movements 1 Result Diagram: 11/18/17 0941 11/19/17 0602 Imaging Last Impressions Head CT 11/18/17 0935 Signed Impressions: Service Date/Time: Saturday, November 18, 2017 10:13 - CONCLUSION: Negative for acute process Torres Smith MD FACR Cervical Spine MRI 11/18/17 0000 Signed Impressions: Service Date/Time: Saturday, November 18, 2017 12:26 - CONCLUSION: Minimal degenerative changes as described above worst at C5 on the left. I don't see enough findings to account for patient's symptomatology. There is no spinal stenosis. Torres Smith MD FACR Carotid Artery Ultrasound 11/18/17 0000 Signed Impressions: Service Date/Time: Saturday, November 18, 2017 16:30 - CONCLUSION: Negative for hemodynamically significant stenosis Torres Smith MD FACR Brain MRI 11/18/17 0000 Signed Impressions: Service Date/Time: Saturday, November 18, 2017 18:54 - CONCLUSION: 2 abnormal areas of signal including an elongated area in the jones matter I believe subacute stroke in the questionable 5 mm area of increased signal in the diffusion weighted sequences (series 7 image 39) could be a minor acute stroke. Leonel Mc MD Objective Remarks GENERAL: This is a well-nourished, well-developed patient, in no apparent distress. CARDIOVASCULAR: Regular rate and regular rhythm without murmurs, gallops, or rubs. RESPIRATORY: Clear to auscultation. Breath sounds equal bilaterally. No wheezes , rales, or rhonchi. GASTROINTESTINAL: Abdomen soft, non-tender, nondistended. Normal, active bowel sounds MUSCULOSKELETAL: Extremities without clubbing, cyanosis, or edema. NEURO: Alert & Oriented x4 to person, place, time, situation. Moves all ext x4 Medications and IVs Inpatient Medications Dextrose (D50w (Vial) Inj) 50 ml UNSCH PRN IV PUSH HYPOGLYCEMIA-SEE COMMENTS; Start 11/18/17 at 11:45 Flumazenil (Romazicon Inj) 0.2 mg Q1M PRN IV PUSH SEE LABEL COMMENTS; Start 11/18/17 at 11:45 Glucagon (Glucagon Inj) 1 mg UNSCH PRN OTHER HYPOGLYCEMIA-SEE COMMENTS; Start 11/18/17 at 11:45 Influenza Virus Vaccine (Flu (Quadrivalent) Vaccine Inj) 0.5 ml ONCE ONCE IM ; Start 11/19/17 at 10:00; Stop 11/19/17 at 10:01 Insulin Aspart (NovoLOG SUPPLEMENTAL SCALE) 1 ACHS SLIDING SCALE SQ Last administered on 11/18/17at 23:38; Start 11/18/17 at 17:00 Insulin Detemir (Levemir Inj) 10 units HS SQ Last administered on 11/18/17at 23: 38; Start 11/18/17 at 21:00 Lorazepam (Ativan Inj) 2 mg Q15M PRN IV PUSH CIWA > 20; Start 11/18/17 at 11:45 Lorazepam (Ativan) 2 mg Q2H PRN PO CIWA 11-14; Start 11/18/17 at 11:45 Sodium Chloride 1,000 ml @ 100 mls/hr Q10H IV Last administered on 11/18/17at 23 :37; Start 11/18/17 at 12:00 Sodium Chloride (NS Flush) 2 ml UNSCH PRN IVF FLUSH AFTER USING IV ACCESS; Start 11/18/17 at 09:45 A/P Assessment and Plan A/P New onset diabetes -started on levemir - Accu-Cheks, insulin sliding scale - hemoglobin A1c 12.4. - healthcare educator -consulted neon installer. acute stroke -start on aspirin -check echo and lipid panel -consult PT/OT - Carotid US with no significant stenosis - neurology consult appreciated. COPD, not in acute exacerbation Ongoing tobaccoism - Discussed tobacco cessation - DuoNeb's as needed - Monitor respiratory status Hyponatremia- improved - monitor Alcoholism No signs of withdrawal at this time. - [facility] protocol. - Cessation counseling - Thiamine/Folic Acid/MVI daily Hypokalemia; will replace. DVT prophylaxis - Lovenox sq Shiva Caballero MD Nov 19, 2017 09:43
[2017-11-19] MEDS ORDERED: POTASSIUM CHLORIDE 10 MEQ CONTROLLED RELEASE TAB PO ONE (09:45)
[2017-11-19] MEDS ORDERED: INFLUENZA VIRUS VACCINE (QUADRIVALENT) 0.5 ML SYR IM ONE (10:00)
[2017-11-19] MEDS: INSULIN ASPART SUPPLEMENTAL SCALE SQ SCH ×3 (10:50→23:42)
[2017-11-19] MEDS: ASPIRIN 81 MG CHEW TAB CHEW SCH (10:52)
[2017-11-19] MEDS: SODIUM CHLOR 0.9% 1000 ML INJ 1,000 ML IV SCH ×2 (10:54→16:24)
[2017-11-19] MEDS ORDERED: ETOMIDATE 40 MG/20 ML VIAL ONE (12:52)
[2017-11-19] MEDS ORDERED: SUCCINYLCHOLINE CHLORIDE 200 MG/10 ML VIAL ONE (12:53)
--- NOTE | 2017-11-19 12:56 | HHI.PR ---
Addendum To [facility] Progress Not Reason for addendum: Additonal documentation (patient had a seizure. halicat was called. at the time of my evaluation he had an episode of tonic-clonic seizure. he received a dose of IV Ativan. bead maker was consulted and the paln for intubatio and transfer to ICU. neurology was notified. case was d/w and .) Shiva Caballero MD Nov 19, 2017 12:56
[2017-11-19] MEDS ORDERED: PROPOFOL 500 MG/50 ML INJ 50 ML ONE (13:07)
[2017-11-19] MEDS ORDERED: MISCELLANEOUS NURSING INFORMATION XX SCH (13:15)
[2017-11-19] MEDS ORDERED: CHLORHEXIDINE GLUCONATE 2 % 1 PACK (2 CLOTHS) TOP PRN (13:15)
[2017-11-19] MEDS ORDERED: SODIUM CHLORIDE 0.9% FLUSH 10 ML FLUSH IV FLUSH PRN (13:15)
[2017-11-19] MEDS ORDERED: RESP: ALBUTEROL 2.5 MG/IPRATROPIUM 0.5 MG NEB (PRN) INH (13:15)
[2017-11-19] MEDS ORDERED: INSULIN DETEMIR 100 UNITS/ML VIAL SQ SCH (13:15)
[2017-11-19] MEDS ORDERED: DILTIAZEM HCL 25 MG/5 ML VIAL ONE (13:22)
[2017-11-19] MEDS ORDERED: METOPROLOL TARTRATE 5 MG/5 ML VIAL ONE (13:30)
[2017-11-19 13:56] LABS: HEMOGLOBIN 14.8 GM/DL (13.0-17.0); MEAN CELL VOLUME 95.2 FL (80.0-100.0); MEAN CORPUSCULAR HEMOGLOBIN 32.9 PG (27.0-34.0); MEAN CORPUSCULAR HGB CONC 34.5 % (32.0-36.0); MEAN PLATELET VOLUME 9.8 FL (7.0-11.0); PLATELET COUNT 206 TH/MM3 (150-450); RED BLOOD COUNT 4.52 MIL/MM3 (4.50-5.90); RED CELL DISTRIBUTION WIDTH 12.3 % (11.6-17.2); WHITE BLOOD COUNT 10.9 TH/MM3 (4.0-11.0)
[2017-11-19] MEDS ORDERED: levETIRAcetam INJ 100 ML IV ONE (14:00)
[2017-11-19 14:18] LABS: ALBUMIN 3.4 GM/DL (3.4-5.0); ALKALINE PHOSPHATASE 111 U/L (45-117); ALT (GPT) 71 U/L (12-78); AST (GOT) 63 U/L (15-37); BLOOD UREA NITROGEN 11 MG/DL (7-18); CALCIUM 8.4 MG/DL (8.5-10.1); CHLORIDE 101 MEQ/L (98-107); CREATININE 1.18 MG/DL (0.60-1.30); GLOMERULAR FILTRATION RATE 63 ML/MIN (>89); GLUCOSE,RANDOM 271 MG/DL (74-106); MAGNESIUM 2.1 MG/DL (1.5-2.5); SODIUM (NA) 135 MEQ/L (136-145); TOTAL BILIRUBIN ADULT 0.3 MG/DL (0.2-1.0); TOTAL PROTEIN 6.7 GM/DL (6.4-8.2)
--- NOTE | 2017-11-19 14:26 | RADRPT ---
EXAM DATE/TIME: 11/19/2017 13:21 [facility] COMPARISON: No previous studies available for comparison. INDICATIONS : Post intubation. MEDICAL HISTORY : Diabetes mellitus type II. SURGICAL HISTORY : None. ENCOUNTER: Subsequent ACUITY: 1 day PAIN SCORE: Non-responsive. LOCATION: Bilateral chest FINDINGS: A single view of the chest demonstrates the lungs to be symmetrically aerated without evidence of mas s, infiltrate or effusion. The cardiomediastinal contours are unremarkable. Osseous structures are intact. There is an endotrachial tube in place with centimeters above the андрей. A nasogastric tube is in place. The CONCLUSION: No acute disease. Sumanth Lubin MD on November 19, 2017 at 14:08 Board Certified Radiologist. This report was verified electronically.
[2017-11-19] MEDS: RESP: ALBUTEROL 2.5 MG/IPRATROPIUM 0.5 MG NEB (SCH) NEB ×2 (14:47→20:47)
[2017-11-19] MEDS: chlordiazePOXIDE 25 MG CAP OG-TUBE SCH ×2 (14:53→21:25)
--- NOTE | 2017-11-19 15:13 | HHI.PR ---
Review/Management Diagnosis Acute ischemic stroke New onset hyperglycemia Seizure disorder Possibly related to withdrawal from Etoh Respiratory failure Plan Neuro checks Q1h Keppra 750mg Q12h Loading dose 1 gm of Keppra EEG Follow up head CT scan Seizure precautions DVT prophylaxis GI prophylaxis Diagnosis/Plan: Subjective Subjective Comments Reported seizure activity by PA in the CDU Another reported seizure activity by RN at ICU Patient intubated and sedated after he received 2 mg Ativan MRI revealed right ischemic stroke Elevated lactic acid 10.8 Active Medications Current Medications Medications (Trade) Dose Ordered Sig/Hcun Route Start Time Stop Time Status Last Admin (NS Flush) 2 ml UNSCH PRN IVF 11/18/17 09:45 (D50w (Vial) Inj) 50 ml UNSCH PRN IV PUSH 11/18/17 11:45 (Glucagon Inj) 1 mg UNSCH PRN OTHER 11/18/17 11:45 (Romazicon Inj) 0.2 mg Q1M PRN IV PUSH 11/18/17 11:45 (Ativan) 1 mg Q4H PRN PO 11/18/17 11:45 (Ativan Inj) 1 mg Q4H PRN IV PUSH 11/18/17 11:45 (Ativan) 2 mg Q2H PRN PO 11/18/17 11:45 (Ativan Inj) 2 mg Q2H PRN IV PUSH 11/18/17 11:45 (Ativan Inj) 2 mg Q1H PRN IV PUSH 11/18/17 11:45 (Ativan Inj) 2 mg Q15M PRN IV PUSH 11/18/17 11:45 11/19/17 12:39 Sodium Chloride 1,000 ml @ 100 mls/hr Q10H IV 11/18/17 12:00 11/19/17 10:54 (Levemir Inj) 10 units HS SQ 11/18/17 21:00 11/18/17 23:38 (Aspirin Chew) 162 mg DAILY CHEW 11/19/17 09:45 11/19/17 10:52 (NS Flush) 2 ml UNSCH PRN IV FLUSH 11/19/17 13:15 (NS Flush) 2 ml BID IV FLUSH 11/19/17 21:00 (Duoneb Neb) 1 ampule Q6HR NEB NEB 11/19/17 16:00 11/19/17 14:47 (Duoneb Neb) 1 ampule Q4HR NEB PRN INH 11/19/17 13:15 (Peridex 0.12% Liq) 15 ml BID@08,20 MT 11/19/17 20:00 (Pepcid) 20 mg BID TUBE 11/19/17 21:00 Miscellaneous Information 1 Q361D XX 11/19/17 13:15 11/19/17 13:15 (Chlorhexidine 2% Cloth) 3 pack Taper DAILY@04 TOP 11/20/17 04:00 11/16/18 03:59 (Chlorhexidine 2% Cloth) 3 pack UNSCH PRN TOP 11/19/17 13:15 Propofol 100 ml @ 2.22 mls/hr TITRATE PRN IV 11/19/17 13:15 (NovoLOG SUPPLEMENTAL SCALE) 1 Q6HR SQ 11/19/17 18:00 (Librium) 25 mg Q8HR OG-TUBE 11/19/17 14:00 11/19/17 14:53 (Levemir Inj) 10 units STAT SQ 11/19/17 13:15 (Keppra) 750 mg Q12H OG-TUBE 11/19/17 18:00 (Ativan Inj) 4 mg NOW ONCE IV 11/19/17 15:15 11/19/17 15:16 (Lopressor Inj) 5 mg NOW ONCE IV PUSH 11/19/17 15:15 11/19/17 15:16 (Cardizem Inj) 20 mg NOW ONCE IV 11/19/17 15:15 11/19/17 15:16 Allergies Allergies Coded Allergies *MDRO Multi-Drug Resistant Organism (Verified Adverse Reaction, Unknown, ) Review of Systems All other ROS: ROS reviewed as documented in chart Exam I&O / VS Vital Signs Date Time Temp Pulse Resp B/P (MAP) Pulse Ox O2 Delivery O2 Flow Rate FiO2 11/19/17 14:47 99 40 11/19/17 14:00 58 11/19/17 14:00 99.7 172 25 176/111 (132) 97 11/19/17 13:24 97 40 11/19/17 13:00 175 18 185/106 (132) 98 11/19/17 12:45 97 15.00 11/19/17 12:44 154 18 160/74 (102) 99 11/19/17 12:40 191 18 181/94 (123) 91 11/19/17 12:28 96 20 136/62 (86) 98 11/19/17 08:10 54 11/19/17 08:05 98.5 51 18 128/61 (83) 97 11/19/17 04:10 50 11/19/17 03:47 98.9 62 18 111/65 (80) 96 11/19/17 00:00 60 11/18/17 23:54 98.9 65 18 135/77 (96) 95 11/18/17 20:58 55 11/18/17 20:50 98.0 87 18 154/74 (100) 97 11/18/17 15:45 98.0 59 18 127/64 (85) 92 11/18/17 15:41 Exam Comments Intubated and sedated Pupils 2mm equal reaction to light Objective Radiology Results Last 72 hours Impressions Chest X-Ray 11/19/17 0000 Signed Impressions: Service Date/Time: Sunday, November 19, 2017 13:21 - CONCLUSION: No acute disease. Sumanth Lubin MD Head CT 11/18/17 0935 Signed Impressions: Service Date/Time: Saturday, November 18, 2017 10:13 - CONCLUSION: Negative for acute process Torres Smith MD FACR Cervical Spine MRI 11/18/17 0000 Signed Impressions: Service Date/Time: Saturday, November 18, 2017 12:26 - CONCLUSION: Minimal degenerative changes as described above worst at C5 on the left. I don't see enough findings to account for patient's symptomatology. There is no spinal stenosis. Torres Smith MD FACR Carotid Artery Ultrasound 11/18/17 0000 Signed Impressions: Service Date/Time: Saturday, November 18, 2017 16:30 - CONCLUSION: Negative for hemodynamically significant stenosis Torres Smith MD FACR Brain MRI 11/18/17 0000 Signed Impressions: Service Date/Time: Saturday, November 18, 2017 18:54 - CONCLUSION: 2 abnormal areas of signal including an elongated area in the jones matter I believe subacute stroke in the questionable 5 mm area of increased signal in the diffusion weighted sequences (series 7 image 39) could be a minor acute stroke. Leonel Mc MD Micro and Labs Laboratory Tests Test 11/19/17 06:02 11/19/17 13:36 11/19/17 13:52 Blood Urea Nitrogen 10 11 Creatinine 0.79 1.18 Random Glucose 190 271 Calcium Level 8.6 8.4 Sodium Level 136 135 Potassium Level 3.3 3.7 Chloride Level 101 101 Carbon Dioxide Level 28.8 18.0 Anion Gap 6 16 Estimat Glomerular Filtration Rate 100 63 White Blood Count 10.9 Red Blood Count 4.52 Hemoglobin 14.8 Hematocrit 43.0 Mean Corpuscular Volume 95.2 Mean Corpuscular Hemoglobin 32.9 Mean Corpuscular Hemoglobin Concent 34.5 Red Cell Distribution Width 12.3 Platelet Count 206 Mean Platelet Volume 9.8 Total Protein 6.7 Albumin 3.4 Phosphorus Level 2.0 Magnesium Level 2.1 Alkaline Phosphatase 111 Aspartate Amino Transf (AST/SGOT) 63 Alanine Aminotransferase (ALT/SGPT) 71 Total Bilirubin 0.3 Lactic Acid Level 10.8 Blood Gas Puncture Site LT RADIAL Blood Gas Patient Temperature 98.6 Blood Gas HCO3 19 Blood Gas Base Excess -5.4 Blood Gas Oxygen Saturation 96 Arterial Blood pH 7.34 Arterial Blood Partial Pressure CO2 37 Arterial Blood Partial Pressure O2 101 Arterial Blood Oxygen Content 19.4 Arterial Blood Carboxyhemoglobin 1.3 Arterial Blood Methemoglobin 1.0 Blood Gas Hemoglobin 14.3 Oxygen Delivery Device VENTILATOR Blood Gas Ventilator Setting PCVG Blood Gas Inspired Oxygen 40 Johanny Trujillo MD Nov 19, 2017 15:13
[2017-11-19] MEDS ORDERED: DILTIAZEM HCL 25 MG/5 ML VIAL IV ONE (15:15)
[2017-11-19] MEDS ORDERED: METOPROLOL TARTRATE 5 MG/5 ML VIAL IV PUSH ONE (15:15)
[2017-11-19] MEDS ORDERED: LORazepam 2 MG/ML VIAL IV ONE (15:15)
--- NOTE | 2017-11-19 16:38 | RADRPT ---
EXAM DATE/TIME: 11/19/2017 16:15 [facility] COMPARISON: CT BRAIN W/O CONTRAST, November 18, 2017, 10:13. INDICATIONS : Altered mental status, stroke. RADIATION DOSE: 56.35 CTDIvol (mGy) MEDICAL HISTORY : None SURGICAL HISTORY : None. ENCOUNTER: Initial ACUITY: 1 day PAIN SCALE: Non-responsive LOCATION: Bilateral cranial TECHNIQUE: Multiple contiguous axial images were obtained of the head. Using automated exposure control and adjustment of the mA and/or kV according to patient size, radiation dose was kept as low as reasonably achievable to obtain optimal diagnostic quality images. DICOM format image data is av ailable electronically for review and comparison. FINDINGS: CEREBRUM: The ventricles are normal for age. No evidence of midline shift, mass lesion, hemorrha ge or acute infarction. No extra-axial fluid collections are seen. POSTERIOR FOSSA: The cerebellum and brainstem are intact. The 4th ventricle is midline. The cer ebellopontine angle is unremarkable. EXTRACRANIAL: The visualized portion of the orbits is intact. SKULL: The calvaria is intact. No evidence of skull fracture. CONCLUSION: Stable noncontrast head CT Sumanth Lubin MD on November 19, 2017 at 16:34 Board Certified Radiologist. This report was verified electronically.
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
--- NOTE | 2017-11-19 17:23 | PD.PROCEDR ---
Procedure Note Procedure Procedure: Endotracheal intubation Preop diagnosis: Seizure, encephalopathy Postop diagnosis: Same Indication: Airway protection Sedation used: Etomidate 40 mg,, succinylcholine 200 mg IV Procedure: Patient was preoxygenated with 100% oxygen via Ambu bag with bag mask ventilation, following induction of sedation and neuromuscular blockade, direct laryngoscopy was performed using a Mac 4 blade with good visualization of vocal cords. An 8 Slovak ET tube was passed through the vocal cords under direct visualization up to the 23 centimeter simran and after inflating cuff of ET tube, correct placement was confirmed using bagging with good color change on CO2 detector, 5 point auscultation and chest rise with ventilation. Patient was connected to mechanical ventilation. Patient tolerated the procedure well with no immediate complications noted. Postprocedure chest x-ray was ordered. Jose Luis Johnson MD Nov 19, 2017 17:23
[2017-11-19] MEDS: levETIRAcetam 500 MG TAB OG-TUBE SCH (17:49)
[2017-11-19] MEDS: ENOXAPARIN SODIUM 40 MG/0.4 ML SYRINGE SQ SCH (17:49)
[2017-11-19] MEDS: CHLORHEXIDINE 0.12% (ORAL KIT) 15 ML CUP MT SCH (20:00)
[2017-11-19] MEDS: SODIUM CHLORIDE 0.9% FLUSH 10 ML FLUSH IV FLUSH SCH (20:47)
[2017-11-19] MEDS: INSULIN DETEMIR 100 UNITS/ML VIAL SQ SCH (20:47)
[2017-11-19] MEDS: FAMOTIDINE 20 MG TAB TUBE SCH (20:47)
[2017-11-19] MEDS: PROPOFOL 1000 MG/100 ML INJ 100 ML IV PRN (21:26)
[2017-11-20] VITALS (18 sets, daily range): BP systolic 95–142; BP diastolic 53–77; PULSE 62–104; RESP 17–22; TEMP 98.2–99.3; O2SAT 96–100
[2017-11-20] MEDS: SODIUM CHLOR 0.9% 1000 ML INJ 1,000 ML IV SCH ×2 (01:30→14:00)
[2017-11-20] MEDS: RESP: ALBUTEROL 2.5 MG/IPRATROPIUM 0.5 MG NEB (SCH) NEB ×4 (03:41→20:47)
[2017-11-20] MEDS: CHLORHEXIDINE GLUCONATE 2 % 1 PACK (2 CLOTHS) TOP SCH (04:00)
[2017-11-20] MEDS: PROPOFOL 1000 MG/100 ML INJ 100 ML IV PRN (04:12)
[2017-11-20] MEDS: levETIRAcetam 500 MG TAB OG-TUBE SCH ×2 (05:02→18:00)
[2017-11-20] MEDS: chlordiazePOXIDE 25 MG CAP OG-TUBE SCH ×3 (05:02→14:27)
[2017-11-20 05:18] LABS: AUTOMATED NEUTROPHIL # 4.5 TH/MM3 (1.8-7.7); BASOPHIL % 0.5 % (0.0-2.0); EOSINOPHIL # 0.1 TH/MM3 (0-0.4); EOSINOPHIL % 0.6 % (0.0-4.0); HEMATOCRIT 36.3 % (39.0-51.0); HEMOGLOBIN 12.7 GM/DL (13.0-17.0); LYMPH % 43.6 % (9.0-44.0); MEAN CELL VOLUME 94.6 FL (80.0-100.0); MEAN CORPUSCULAR HEMOGLOBIN 33.1 PG (27.0-34.0); MEAN PLATELET VOLUME 9.4 FL (7.0-11.0); MONO % 6.2 % (0.0-8.0); MONOCYTE # 0.6 TH/MM3 (0-0.9); NEUT % 49.1 % (16.0-70.0); PLATELET COUNT 134 TH/MM3 (150-450); RED BLOOD COUNT 3.83 MIL/MM3 (4.50-5.90); RED CELL DISTRIBUTION WIDTH 12.6 % (11.6-17.2); WHITE BLOOD COUNT 9.3 TH/MM3 (4.0-11.0)
[2017-11-20] MEDS: INSULIN ASPART SUPPLEMENTAL SCALE SQ SCH ×3 (05:19→18:00)
[2017-11-20 06:01] LABS: ALBUMIN 2.7 GM/DL (3.4-5.0); ALKALINE PHOSPHATASE 101 U/L (45-117); ALT (GPT) 65 U/L (12-78); AST (GOT) 59 U/L (15-37); BICARBONATE 25.1 MEQ/L (21.0-32.0); BLOOD UREA NITROGEN 10 MG/DL (7-18); CHLORIDE 105 MEQ/L (98-107); CHOLESTEROL 110 MG/DL (120-200); CHOLESTEROL/ HDL RATIO 6.11 RATIO; CREATININE 0.77 MG/DL (0.60-1.30); GLOMERULAR FILTRATION RATE 103 ML/MIN (>89); GLUCOSE,RANDOM 247 MG/DL (74-106); LDL CHOLESTEROL 29 MG/DL (0-99); SODIUM (NA) 139 MEQ/L (136-145); TOTAL BILIRUBIN ADULT 0.3 MG/DL (0.2-1.0); TOTAL PROTEIN 5.4 GM/DL (6.4-8.2); TRIGLYCERIDES 316 MG/DL (42-150)
[2017-11-20] MEDS: CHLORHEXIDINE 0.12% (ORAL KIT) 15 ML CUP MT SCH ×2 (08:00→20:00)
[2017-11-20] MEDS: FAMOTIDINE 20 MG TAB TUBE SCH ×2 (08:45→20:19)
[2017-11-20] MEDS: ASPIRIN 81 MG CHEW TAB CHEW SCH (08:45)
[2017-11-20] MEDS: SODIUM CHLORIDE 0.9% FLUSH 10 ML FLUSH IV FLUSH SCH ×2 (08:45→20:19)
--- NOTE | 2017-11-20 11:38 | HHI.CCPN ---
Subjective Remarks/Hospital Course 11/19: 62-year-old homeless male with a medical history significant for diabetes mellitus, alcohol abuse, COPD, depression who was kept in obscured by hospitalist service after presenting on 11/18/2017 with left hand weakness and numbness along with tingling going on for 2 weeks. He underwent imaging studies including MRI brain which revealed right temporal occipital 1.9 x 1.5 cm subacute CVA. He was seen by neurology and started on aspirin. Today patient was noted to have a generalized tonic-clonic seizure for which rapid response team was called. I was contacted by rapid response team as patient was extremely lethargic and unresponsive following the seizure. I immediately reached patient's bedside and at the time of my evaluation he was unresponsive/comatose, not responding to painful stimuli and was being ventilated with bag mask ventilation by respiratory therapist. I proceeded with endotracheal intubation for airway protection after sedating him with a dominate using succinylcholine for neuromuscular blockade and patient was subsequently transferred to [facility] and placed on mechanical ventilation. He did have another seizure following arrival to the ICU which was generalized tonic- clonic in nature for which I ordered 4 mg IV Ativan. Patient was hypertensive and tachycardic following arrival to the ICU for which he received Lopressor 5 mg IV as well as Cardizem 20 mg IV. Keppra 1 g IV stat was ordered earlier. History was obtained by reviewing records and discussion with rapid response team as well as Dr. Leslie from hospitalist service. 11/20: Sedated, arousable at the time of my evaluation this morning. Was intubated at the time of my evaluation. No seizures overnight. Objective Vital Signs Date Time Temp Pulse Resp B/P (MAP) Pulse Ox O2 Delivery O2 Flow Rate FiO2 11/20/17 10:43 100 Nasal Cannula 2.00 11/20/17 10:00 85 11/20/17 08:27 30 11/20/17 08:00 99.0 20 104/57 (73) Intake and Output 11/20/17 11/20/17 11/21/17 08:00 16:00 00:00 Intake Total 2090 ml Output Total 575 ml Balance 1515 ml Result Diagram: 11/20/17 0459 11/20/17 0459 Other Results Laboratory Tests Test 11/19/17 13:52 Blood Gas Puncture Site LT RADIAL Blood Gas Patient Temperature 98.6 Blood Gas HCO3 19 mmol/L (22-26) Blood Gas Base Excess -5.4 mmol/L (-2-2) Blood Gas Oxygen Saturation 96 % (90-100) Arterial Blood pH 7.34 (7.380-7.420) Arterial Blood Partial Pressure CO2 37 mmHg (38-42) Arterial Blood Partial Pressure O2 101 mmHg (61-120) Arterial Blood Oxygen Content 19.4 Vol % (12.0-20.0) Arterial Blood Carboxyhemoglobin 1.3 % (0-4) Arterial Blood Methemoglobin 1.0 % (0-2) Blood Gas Hemoglobin 14.3 G/DL (12.0-16.0) Oxygen Delivery Device VENTILATOR Blood Gas Ventilator Setting PCVG Blood Gas Inspired Oxygen 40 % Imaging Post intubation chest x-ray which was personally reviewed: ET tube above андрей , NG tube in place, lung tapia appear clear with no obvious infiltrates. Last Impressions Chest X-Ray 11/19/17 0000 Signed Impressions: Service Date/Time: Sunday, November 19, 2017 13:21 - CONCLUSION: No acute disease. Sumanth Lubin MD Head CT 11/18/17 0935 Signed Impressions: Service Date/Time: Saturday, November 18, 2017 10:13 - CONCLUSION: Negative for acute process Torres Smith MD FACR Cervical Spine MRI 11/18/17 0000 Signed Impressions: Service Date/Time: Saturday, November 18, 2017 12:26 - CONCLUSION: Minimal degenerative changes as described above worst at C5 on the left. I don't see enough findings to account for patient's symptomatology. There is no spinal stenosis. Torres Smith MD FACR Carotid Artery Ultrasound 11/18/17 0000 Signed Impressions: Service Date/Time: Saturday, November 18, 2017 16:30 - CONCLUSION: Negative for hemodynamically significant stenosis Torres Smith MD FACR Brain MRI 11/18/17 0000 Signed Impressions: Service Date/Time: Saturday, November 18, 2017 18:54 - CONCLUSION: 2 abnormal areas of signal including an elongated area in the jones matter I believe subacute stroke in the questionable 5 mm area of increased signal in the diffusion weighted sequences (series 7 image 39) could be a minor acute stroke. Leonel Mc MD Objective Remarks HEENT/ Neuro: Sedated, orally intubated, pupils 3 mm bilaterally reacting actively to light, not responding to painful stimuli prior to intubation. Plantars equivocal, deep tendon reflexes +/+ Pallor present, no icterus, tongue / mucosa moist Neck: No JVD Chest/Pulm: on mech vent, good air entry bilaterally, no wheezing or crackles CVS: S1-S2 regular, no murmur GI/abdomen: soft, nontender, bowel sounds sluggish Extremities: warm bilaterally, no edema A/P Assessment and Plan 62-year-old male with: Seizure most likely secondary to alcohol withdrawal Acute respiratory failure requiring mechanical ventilation for airway protection Alcohol abuse Secondary to right temporal occipital subacute ischemic stroke COPD Uncontrolled diabetes mellitus Hyponatremia Plan: Neuro: Sedation with propofol, daily sedation vacation. Loaded with Keppra which is being continued. Follow up EEG. Head CT on 11/19 unremarkable. Neurology following. Continue aspirin. Follow neuro checks Cardiovascular: IV hydration, watch for hypotension, given IV Lopressor and Cardizem following arrival to ICU. Lisinopril 10 mg by mouth daily for hypertension. Pulmonary: On mechanical ventilation, vent bundle, bronchodilators as needed. Tolerated C Pap trial and extubated to nasal cannula Renal/: IV hydration, strict intake output, monitor and replete electrolytes, follow BUN creatinine. GI/liver: Tolerating tube feeds. Hold for extubation. Following extubation will decide regarding advancing by mouth diet ID: No indication for antibiotics at this time. Endocrine: Continue Levemir, sliding scale insulin Heme: Follow CBC Prophylaxis: Pepcid via NG tube, SCDs. Lovenox 40 mg subcutaneously daily. Discussed with INFECTIOUS DISEASE PHYSICIAN. Jose Luis Johnson MD Nov 20, 2017 11:38
[2017-11-20] MEDS ORDERED: SODIUM PHOSPHATE INJ 30 MMOL in SODIUM CHLOR 0.9% 250 ML INJ 240 ML IV PRN (11:45)
[2017-11-20] MEDS ORDERED: MAGNESIUM SULFATE INJ 2 GM in SODIUM CHLORIDE 0.9% INJ 96 ML IV PRN (11:45)
[2017-11-20] MEDS ORDERED: MAGNESIUM OXIDE 400 MG TAB PO PRN (11:45)
[2017-11-20] MEDS ORDERED: POTASSIUM CHLOR 20 MEQ PREMIX 100 ML IV PRN (11:45)
[2017-11-20] MEDS ORDERED: POTASSIUM PHOSPHATE MONOBASIC 500 MG TAB PO PRN (11:45)
[2017-11-20] MEDS ORDERED: MAGNESIUM SULFATE INJ 4 GM in SODIUM CHLORIDE 0.9% INJ 92 ML IV PRN (11:45)
[2017-11-20] MEDS ORDERED: POTASSIUM PHOSPHATE MONOBASIC 500 MG TAB PO/TUBE PRN (11:45)
[2017-11-20] MEDS ORDERED: POTASSIUM CHLOR 40 MEQ PREMIX 100 ML IV PRN ×2 (11:45)
[2017-11-20] MEDS ORDERED: POTASSIUM PHOSPHATE INJ 30 MMOL in SODIUM CHLOR 0.9% 250 ML INJ 250 ML IV PRN (11:45)
[2017-11-20] MEDS: POTASSIUM CHLOR 20 MEQ PREMIX 100 ML IV PRN ×4 (14:28→21:35)
[2017-11-20] MEDS: ENOXAPARIN SODIUM 40 MG/0.4 ML SYRINGE SQ SCH (18:00)
--- NOTE | 2017-11-20 19:40 | ECHRPT ---
Indication: CVA / TIA CONCLUSIONS The left ventricular systolic function is normal with an estimated ejection fraction in the range of 60-65%. Wall thickness is normal. Normal left ventricular size. There is trace tricuspid valve regurgitation. The estimated pulmonary arterial pressure is 24 mmHg. BP: 128 / 61 HR: 54 Rhythm: Sinus MEASUREMENTS (Male / Female) Normal Values Technical Quality:Fair 2D ECHO LV Diastolic Diameter PLAX 4.6 cm 4.2 - 5.9 / 3.9 - 5.3 cm LV Systolic Diameter PLAX 3.2 cm IVS Diastolic Thickness 0.9 cm 0.6 - 1.0 / 0.6 - 0.9 cm LVPW Diastolic Thickness 0.9 cm 0.6 - 1.0 / 0.6 - 0.9 cm LV Relative Wall Thickness 0.4 LVOT Diameter 2.2 cm M-MODE Aortic Root Diameter MM 4.5 cm LA Systolic Diameter MM 3.7 cm LA Ao Ratio MM 0.8 AV Cusp Separation MM 2.4 cm DOPPLER AV Peak Velocity 132.0 cm/s AV Peak Gradient 7.0 mmHg LVOT Peak Velocity 95.3 cm/s LVOT Peak Gradient 3.6 mmHg AV Area Cont Eq pk 2.7 cm Mitral E Point Velocity 97.2 cm/s Mitral A Point Velocity 93.8 cm/s Mitral E to A Ratio 1.0 LV E' Lateral Velocity 10.0 cm/s Mitral E to LV E' Lateral Ratio 9.7 LV E' Septal Velocity 4.9 cm/s Mitral E to LV E' Septal Ratio 20.0 TR Peak Velocity 189.0 cm/s TR Peak Gradient 14.3 mmHg Right Atrial Pressure 10.0 mmHg Pulmonary Artery Systolic Pressu 24.3 mmHg Right Ventricular Systolic Press 24.3 mmHg FINDINGS LEFT VENTRICLE The left ventricular systolic function is normal with an estimated ejection fraction in the range of 60-65%. Wall thickness is normal. Normal left ventricular size. RIGHT VENTRICLE Normal right ventricular size and systolic function. LEFT ATRIUM The left atrial size is normal. RIGHT ATRIUM The right atrial size is normal. ATRIAL SEPTUM Normal atrial septal thickness without atrial level shunting by limited color doppler interrogation. AORTA The aortic root and proximal ascending aorta are normal in size on limited imaging. MITRAL VALVE Structurally normal mitral valve. No mitral valve stenosis or regurgitation. AORTIC VALVE Trileaflet aortic valve. No aortic valve stenosis or regurgitation. TRICUSPID VALVE There is trace tricuspid valve regurgitation. The estimated pulmonary arterial pressure is 24.3 mmHg. PULMONARY VALVE No pulmonary valve regurgitation or stenosis. VESSELS The inferior vena cava is normal in size. PERICARDIUM No pericardial effusion. Fátima Trimble MD, FACC (Electronically Signed) Final Date:20 November 2017 19:39
[2017-11-20] MEDS: INSULIN DETEMIR 100 UNITS/ML VIAL SQ SCH (20:19)
[2017-11-20] MEDS: chlordiazePOXIDE 25 MG CAP PO SCH (20:19)
--- NOTE | 2017-11-20 22:12 | EKG ---
Date Performed: 11/19/2017 Time Performed: 12:51:03 PTAGE: 62 years EKG: JUNCTIONAL TACHYCARDIA ST DEVIATION AND MODERATE T-WAVE ABNORMALITY ABNORMAL ECG PREVIOUS TRACING : 12/11/2016 02.19 Compared to prior tracing no significant change DOCTOR: Fátima Trimble Interpretating Date/Time 11/20/2017 22:11:59
--- NOTE | 2017-11-20 23:50 | MG ---
cc: GABRIELLE TRUJILLO MD Sex: M DATE OF [address] Johnson MEDICAL HISTORY Asthma, ulcer, right foot surgery, acute stroke, polycythemia, depression, tobacco, alcohol abuse. MEDICATIONS Librium. Aspirin Ativan. DESCRIPTION The patient is intubated, 40 mcg of Diprivan turned off before the EEG was done. There is generalized background slowing with polymorphic high amplitude delta and theta activity. The EEG recording is contaminated with movement artifact. There is left temporal electrode artifact. Hyperventilation was omitted. Photic stimulation did not elicit driving response. There were no electrographic seizures or epileptiform discharges noted during the recording. INTERPRETATION: This is an abnormal EEG with generalized slowing that may indicate an encephalopathic pattern that may be related to medication effect, metabolic or hypoxic lesion. There were no electrographic seizures or epileptiform discharges noted during the recording. Clinical correlation is recommended. Gabrielle Trujillo MD [facility] /8:09 PM /11:39 PM FRANCES
[2017-11-21] VITALS (13 sets, daily range): BP systolic 129–145; BP diastolic 58–74; PULSE 63–130; RESP 20–23; TEMP 98.2–99; O2SAT 95–98
[2017-11-21] MEDS: SODIUM CHLOR 0.9% 1000 ML INJ 1,000 ML IV SCH ×3 (00:30→20:00)
[2017-11-21] MEDS: INSULIN ASPART SUPPLEMENTAL SCALE SQ SCH ×4 (00:30→17:22)
[2017-11-21] MEDS: RESP: ALBUTEROL 2.5 MG/IPRATROPIUM 0.5 MG NEB (SCH) NEB ×4 (03:26→21:13)
[2017-11-21] MEDS: CHLORHEXIDINE GLUCONATE 2 % 1 PACK (2 CLOTHS) TOP SCH (04:00)
[2017-11-21] MEDS: levETIRAcetam 500 MG TAB OG-TUBE SCH ×3 (05:25→17:21)
[2017-11-21] MEDS: FAMOTIDINE 20 MG TAB TUBE SCH ×2 (08:23→21:34)
[2017-11-21] MEDS: ASPIRIN 81 MG CHEW TAB CHEW SCH (08:23)
[2017-11-21] MEDS: CHLORHEXIDINE 0.12% (ORAL KIT) 15 ML CUP MT SCH ×2 (08:23→20:00)
[2017-11-21] MEDS: SODIUM CHLORIDE 0.9% FLUSH 10 ML FLUSH IV FLUSH SCH ×2 (08:23→21:34)
[2017-11-21] MEDS: POTASSIUM CHLOR 20 MEQ PREMIX 100 ML IV PRN (09:54)
[2017-11-21] MEDS ORDERED: POTASSIUM CHLORIDE 20 MEQ CONTROLLED RELEASE TAB PO ONE (12:45)
--- NOTE | 2017-11-21 15:18 | HHI.PR ---
Review/Management Diagnosis Acute ischemic stroke New onset hyperglycemia,resolved Seizure disorder Possibly related to withdrawal from Etoh Respiratory failure Plan Neuro checks Q1h Keppra 750mg Q12h Seizure precautions DVT prophylaxis GI prophylaxis Diagnosis/Plan: Subjective Subjective Comments Patient is extubated Awake, alert, at times sleepy, no new complaints Active Medications Current Medications Medications (Trade) Dose Ordered Sig/Chun Route Start Time Stop Time Status Last Admin (D50w (Vial) Inj) 50 ml UNSCH PRN IV PUSH 11/18/17 11:45 (Glucagon Inj) 1 mg UNSCH PRN OTHER 11/18/17 11:45 (Romazicon Inj) 0.2 mg Q1M PRN IV PUSH 11/18/17 11:45 (Ativan) 1 mg Q4H PRN PO 11/18/17 11:45 (Ativan Inj) 1 mg Q4H PRN IV PUSH 11/18/17 11:45 (Ativan) 2 mg Q2H PRN PO 11/18/17 11:45 (Ativan Inj) 2 mg Q2H PRN IV PUSH 11/18/17 11:45 (Ativan Inj) 2 mg Q1H PRN IV PUSH 11/18/17 11:45 (Ativan Inj) 2 mg Q15M PRN IV PUSH 11/18/17 11:45 11/19/17 12:39 Sodium Chloride 1,000 ml @ 100 mls/hr Q10H IV 11/18/17 12:00 11/21/17 09:53 (Levemir Inj) 10 units HS SQ 11/18/17 21:00 11/20/17 20:19 (Aspirin Chew) 162 mg DAILY CHEW 11/19/17 09:45 11/21/17 08:23 (NS Flush) 2 ml UNSCH PRN IV FLUSH 11/19/17 13:15 (NS Flush) 2 ml BID IV FLUSH 11/19/17 21:00 11/21/17 08:23 (Duoneb Neb) 1 ampule Q6HR NEB NEB 11/19/17 16:00 11/21/17 10:24 (Duoneb Neb) 1 ampule Q4HR NEB PRN INH 11/19/17 13:15 (Peridex 0.12% Liq) 15 ml BID@08,20 MT 11/19/17 20:00 11/21/17 08:23 (Pepcid) 20 mg BID TUBE 11/19/17 21:00 11/21/17 08:23 Miscellaneous Information 1 Q361D XX 11/19/17 13:15 11/19/17 13:15 (Chlorhexidine 2% Cloth) 3 pack Taper DAILY@04 TOP 11/20/17 04:00 11/16/18 03:59 (Chlorhexidine 2% Cloth) 3 pack UNSCH PRN TOP 11/19/17 13:15 (NovoLOG SUPPLEMENTAL SCALE) 1 Q6HR SQ 11/19/17 18:00 11/21/17 05:25 (Levemir Inj) 10 units STAT SQ 11/19/17 13:15 (Keppra) 750 mg Q12H OG-TUBE 11/19/17 18:00 11/20/17 05:02 (Lovenox Inj) 40 mg Q24H SQ 11/19/17 18:00 11/20/17 18:00 Potassium Chloride 100 ml @ 50 mls/hr Q2H PRN IV 11/20/17 11:45 Potassium Chloride 100 ml @ 50 mls/hr Q2H PRN IV 11/20/17 11:45 11/21/17 09:54 Potassium Chloride 100 ml @ 25 mls/hr UNSCH PRN IV 11/20/17 11:45 Potassium Chloride 100 ml @ 50 mls/hr Q2H PRN IV 11/20/17 11:45 Magnesium Sulfate 4 gm/Sodium Chloride 100 ml @ 50 mls/hr UNSCH PRN IV 11/20/17 11:45 (Mag-Ox) 800 mg UNSCH PRN PO 11/20/17 11:45 Magnesium Sulfate 2 gm/Sodium Chloride 100 ml @ 50 mls/hr UNSCH PRN IV 11/20/17 11:45 (K-Phos) 2,000 mg Q4H PRN PO 11/20/17 11:45 Sodium Phosphate 30 mmol/Sodium Chloride 250 ml @ 42 mls/hr UNSCH PRN IV 11/20/17 11:45 (K-Phos) 2,000 mg UNSCH PRN PO/TUBE 11/20/17 11:45 Potassium Phosphate 30 mmol/ Sodium Chloride 260 ml @ 42 mls/hr UNSCH PRN IV 11/20/17 11:45 (Librium) 25 mg HS PO 11/20/17 21:00 11/20/17 20:19 Allergies Allergies Coded Allergies *MDRO Multi-Drug Resistant Organism (Verified Adverse Reaction, Unknown, ) Review of Systems All other ROS: ROS reviewed as documented in chart Exam I&O / VS Vital Signs Date Time Temp Pulse Resp B/P (MAP) Pulse Ox O2 Delivery O2 Flow Rate FiO2 11/21/17 14:00 81 11/21/17 12:00 98.3 74 20 129/58 (81) 98 11/21/17 12:00 78 11/21/17 10:24 96 21 11/21/17 10:00 130 11/21/17 08:00 74 11/21/17 08:00 98.4 63 22 136/63 (87) 98 11/21/17 07:00 98 Room Air 11/21/17 06:00 83 11/21/17 04:00 78 11/21/17 04:00 98.2 78 20 142/65 (90) 96 11/21/17 02:00 68 11/21/17 00:00 98.6 84 23 145/73 (97) 97 11/21/17 00:00 84 11/20/17 22:00 104 11/20/17 20:45 100 21 11/20/17 20:00 75 11/20/17 20:00 98.7 75 22 131/77 (95) 97 11/20/17 19:20 Room Air 11/20/17 18:00 77 11/20/17 16:00 98.3 69 20 125/61 (82) 96 11/20/17 16:00 69 Exam Comments Awake, alert, oriented Intact neurologic exam Objective Radiology Results Last [address] 11/19/17 0000 Signed Impressions: Service Date/Time: Sunday, November 19, 2017 16:15 - CONCLUSION: Stable noncontrast head CT Sumanth Lubin MD Chest X-Ray 11/19/17 0000 Signed Impressions: Service Date/Time: Sunday, November 19, 2017 13:21 - CONCLUSION: No acute disease. Sumanth Lubin MD Micro and Labs Date/Time Source Procedure Growth Status 11/19/17 13:30 Sputum Endotracheal Gram Stain - Final Resulted 11/19/17 13:30 Sputum Culture - Preliminary Gram Negative Sunny Resulted Johanny Trujillo MD Nov 21, 2017 15:18
[2017-11-21] MEDS: ENOXAPARIN SODIUM 40 MG/0.4 ML SYRINGE SQ SCH (17:22)
[2017-11-21] MEDS: chlordiazePOXIDE 25 MG CAP PO SCH (21:34)
[2017-11-21] MEDS: INSULIN DETEMIR 100 UNITS/ML VIAL SQ SCH (21:35)
[2017-11-22] VITALS (9 sets, daily range): BP systolic 105–146; BP diastolic 68–95; PULSE 69–151; RESP 13–25; TEMP 98–98.4; O2SAT 92–98
[2017-11-22] MEDS: INSULIN ASPART SUPPLEMENTAL SCALE SQ SCH ×4 (00:26→18:00)
[2017-11-22] MEDS: RESP: ALBUTEROL 2.5 MG/IPRATROPIUM 0.5 MG NEB (SCH) NEB ×4 (03:42→20:36)
[2017-11-22] MEDS: CHLORHEXIDINE GLUCONATE 2 % 1 PACK (2 CLOTHS) TOP SCH (04:00)
[2017-11-22] MEDS: SODIUM CHLOR 0.9% 1000 ML INJ 1,000 ML IV SCH ×3 (04:32→06:00)
[2017-11-22] MEDS: levETIRAcetam 500 MG TAB OG-TUBE SCH ×2 (05:50→18:32)
[2017-11-22] MEDS: CHLORHEXIDINE 0.12% (ORAL KIT) 15 ML CUP MT SCH ×2 (07:58→20:00)
[2017-11-22] MEDS: SODIUM CHLORIDE 0.9% FLUSH 10 ML FLUSH IV FLUSH SCH ×2 (07:58→20:44)
[2017-11-22] MEDS: ASPIRIN 81 MG CHEW TAB CHEW SCH (07:58)
[2017-11-22] MEDS: FAMOTIDINE 20 MG TAB TUBE SCH ×2 (07:58→20:43)
--- NOTE | 2017-11-22 08:28 | HHI.CCPN ---
Subjective Remarks/Hospital Course Note for 11/21/16: 11/19: 62-year-old homeless male with a medical history significant for diabetes mellitus, alcohol abuse, COPD, depression who was kept in obscured by hospitalist service after presenting on 11/18/2017 with left hand weakness and numbness along with tingling going on for 2 weeks. He underwent imaging studies including MRI brain which revealed right temporal occipital 1.9 x 1.5 cm subacute CVA. He was seen by neurology and started on aspirin. Today patient was noted to have a generalized tonic-clonic seizure for which rapid response team was called. I was contacted by rapid response team as patient was extremely lethargic and unresponsive following the seizure. I immediately reached patient's bedside and at the time of my evaluation he was unresponsive/comatose, not responding to painful stimuli and was being ventilated with bag mask ventilation by respiratory therapist. I proceeded with endotracheal intubation for airway protection after sedating him with a dominate using succinylcholine for neuromuscular blockade and patient was subsequently transferred to [facility] and placed on mechanical ventilation. He did have another seizure following arrival to the ICU which was generalized tonic- clonic in nature for which I ordered 4 mg IV Ativan. Patient was hypertensive and tachycardic following arrival to the ICU for which he received Lopressor 5 mg IV as well as Cardizem 20 mg IV. Keppra 1 g IV stat was ordered earlier. History was obtained by reviewing records and discussion with rapid response team as well as Dr. Leslie from hospitalist service. 11/20: Sedated, arousable at the time of my evaluation this morning. Was intubated at the time of my evaluation. No seizures overnight. 11/21: Disagreeable today but alert. No seizures. Objective Vital Signs Date Time Temp Pulse Resp B/P (MAP) Pulse Ox O2 Delivery O2 Flow Rate FiO2 11/22/17 08:00 88 11/22/17 08:00 98.4 16 136/70 (92) 97 11/22/17 07:00 Room Air 11/21/17 21:14 21 11/20/17 10:43 2.00 Intake and Output 11/22/17 11/22/17 11/23/17 08:00 16:00 00:00 Intake Total 2050 ml Balance 2050 ml Result Diagram: 11/20/17 0459 11/22/17 0150 Other Results Microbiology Date/Time Source Procedure Growth Status 11/19/17 13:30 Sputum Endotracheal Gram Stain - Final Complete 11/19/17 13:30 Sputum Culture - Final Klebsiella Oxytoca Complete Imaging Post intubation chest x-ray which was personally reviewed: ET tube above андрей , NG tube in place, lung tapia appear clear with no obvious infiltrates. Last Impressions Chest X-Ray 11/19/17 0000 Signed Impressions: Service Date/Time: Sunday, November 19, 2017 13:21 - CONCLUSION: No acute disease. Sumanth Lubin MD Head CT 11/18/17 0935 Signed Impressions: Service Date/Time: Saturday, November 18, 2017 10:13 - CONCLUSION: Negative for acute process Torres Smith MD FACR Cervical Spine MRI 11/18/17 0000 Signed Impressions: Service Date/Time: Saturday, November 18, 2017 12:26 - CONCLUSION: Minimal degenerative changes as described above worst at C5 on the left. I don't see enough findings to account for patient's symptomatology. There is no spinal stenosis. Torres Smith MD FACR Carotid Artery Ultrasound 11/18/17 0000 Signed Impressions: Service Date/Time: Saturday, November 18, 2017 16:30 - CONCLUSION: Negative for hemodynamically significant stenosis Torres Smith MD FACR Brain MRI 11/18/17 0000 Signed Impressions: Service Date/Time: Saturday, November 18, 2017 18:54 - CONCLUSION: 2 abnormal areas of signal including an elongated area in the jones matter I believe subacute stroke in the questionable 5 mm area of increased signal in the diffusion weighted sequences (series 7 image 39) could be a minor acute stroke. Leonel Mc MD Objective Remarks HEENT/ Neuro: Alert, conversant, pupils 2 mm bilaterally reacting actively to light. Plantars down, deep tendon reflexes +/+, no icterus, tongue/ mucosa moist Neck: Supple, airway widely patent. Chest/Pulm: Breathing comfortably. good air entry bilaterally, no wheezing or crackles CVS: S1-S2 regular, no murmur. No JVD. GI/abdomen: soft, nontender, bowel sounds active. No guarding. Extremities: warm bilaterally, no edema. Well perfused. A/P Assessment and Plan 62-year-old male with: Seizure most likely secondary to alcohol withdrawal Acute respiratory failure requiring mechanical ventilation for airway protection Alcohol abuse Secondary to right temporal occipital subacute ischemic stroke COPD Uncontrolled diabetes mellitus Hyponatremia Plan: Neuro: Loaded with Keppra which is being continued. Follow up EEG. Head CT on unremarkable. Neurology following. Continue aspirin. Follow neuro checks Cardiovascular: IV hydration, given IV Lopressor and Cardizem following arrival to ICU. Lisinopril 10 mg by mouth daily for hypertension. Pulmonary: Continue bronchodilators as needed. Tolerating extubation past 24 hours. Renal/: IV hydration, strict intake output, monitor and replete electrolytes, follow BUN creatinine. GI/liver: Following extubation -> advancing by mouth diet ID: No indication for antibiotics at this time. Endocrine: Continue Levemir, sliding scale insulin Heme: Follow CBC Prophylaxis: SCDs. Lovenox 40 mg subcutaneously daily. Discussed with PEDIATRIC PSYCHIATRIST. Transfer to [facility]. Bhargav Navarro MD Nov 22, 2017 08:28
--- NOTE | 2017-11-22 08:31 | HHI.CCPN ---
Subjective Remarks/Hospital Course Note for 11/22/16: 11/19: 62-year-old homeless male with a medical history significant for diabetes mellitus, alcohol abuse, COPD, depression who was kept in obscured by hospitalist service after presenting on 11/18/2017 with left hand weakness and numbness along with tingling going on for 2 weeks. He underwent imaging studies including MRI brain which revealed right temporal occipital 1.9 x 1.5 cm subacute CVA. He was seen by neurology and started on aspirin. Today patient was noted to have a generalized tonic-clonic seizure for which rapid response team was called. I was contacted by rapid response team as patient was extremely lethargic and unresponsive following the seizure. I immediately reached patient's bedside and at the time of my evaluation he was unresponsive/comatose, not responding to painful stimuli and was being ventilated with bag mask ventilation by respiratory therapist. I proceeded with endotracheal intubation for airway protection after sedating him with a dominate using succinylcholine for neuromuscular blockade and patient was subsequently transferred to [facility] and placed on mechanical ventilation. He did have another seizure following arrival to the ICU which was generalized tonic- clonic in nature for which I ordered 4 mg IV Ativan. Patient was hypertensive and tachycardic following arrival to the ICU for which he received Lopressor 5 mg IV as well as Cardizem 20 mg IV. Keppra 1 g IV stat was ordered earlier. History was obtained by reviewing records and discussion with rapid response team as well as Dr. Leslie from hospitalist service. 11/20: Sedated, arousable at the time of my evaluation this morning. Was intubated at the time of my evaluation. No seizures overnight. 11/21: Disagreeable today but alert. No seizures. 11/22: Much more cooperative today. Tolerating diet. Waiting for bed. No seizures. Objective Vital Signs Date Time Temp Pulse Resp B/P (MAP) Pulse Ox O2 Delivery O2 Flow Rate FiO2 11/22/17 08:00 88 11/22/17 08:00 98.4 16 136/70 (92) 97 11/22/17 07:00 Room Air 11/21/17 21:14 21 11/20/17 10:43 2.00 Intake and Output 11/22/17 11/22/17 11/23/17 08:00 16:00 00:00 Intake Total 2050 ml Balance 2050 ml Result Diagram: 1/10/18 0459 11/22/17 0150 Other Results Microbiology Date/Time Source Procedure Growth Status 11/19/17 13:30 Sputum Endotracheal Gram Stain - Final Complete 11/19/17 13:30 Sputum Culture - Final Klebsiella Oxytoca Complete Imaging Post intubation chest x-ray which was personally reviewed: ET tube above андрей , NG tube in place, lung tapia appear clear with no obvious infiltrates. Last Impressions Chest X-Ray 11/19/17 0000 Signed Impressions: Service Date/Time: Sunday, November 19, 2017 13:21 - CONCLUSION: No acute disease. Sumanth Lubin MD Head CT 11/18/17 0935 Signed Impressions: Service Date/Time: Saturday, November 18, 2017 10:13 - CONCLUSION: Negative for acute process Torres Smith MD FACR Cervical Spine MRI 11/18/17 0000 Signed Impressions: Service Date/Time: Saturday, November 18, 2017 12:26 - CONCLUSION: Minimal degenerative changes as described above worst at C5 on the left. I don't see enough findings to account for patient's symptomatology. There is no spinal stenosis. Torres Smiht MD FACR Carotid Artery Ultrasound 11/18/17 0000 Signed Impressions: Service Date/Time: Saturday, November 18, 2017 16:30 - CONCLUSION: Negative for hemodynamically significant stenosis Torres Smith MD FACR Brain MRI 11/18/17 0000 Signed Impressions: Service Date/Time: Saturday, November 18, 2017 18:54 - CONCLUSION: 2 abnormal areas of signal including an elongated area in the jones matter I believe subacute stroke in the questionable 5 mm area of increased signal in the diffusion weighted sequences (series 7 image 39) could be a minor acute stroke. Leonel Mc MD Objective Remarks Neuro: Alert, conversant, pupils 2 mm bilaterally reacting actively to light. Plantars down, deep tendon reflexes +/+, no icterus, tongue/ mucosa moist Neck: Supple, airway widely patent. Strong cough. Chest/Pulm: Breathing comfortably. good air entry bilaterally, no wheezing or crackles CVS: S1-S2 regular, no murmur. No JVD. GI/abdomen: soft, nontender, bowel sounds active. No guarding. Extremities: warm bilaterally, no edema. Well perfused. A/P Assessment and Plan 62-year-old male with: Seizure most likely secondary to alcohol withdrawal Acute respiratory failure requiring mechanical ventilation for airway protection Alcohol abuse Secondary to right temporal occipital subacute ischemic stroke COPD Uncontrolled diabetes mellitus Hyponatremia Plan: Neuro: Loaded with Keppra which is being continued. Follow up EEG. Head CT on unremarkable. Neurology following. Continue aspirin. Follow neuro checks Cardiovascular: IV hydration, given IV Lopressor and Cardizem following arrival to ICU. Lisinopril 10 mg by mouth daily for hypertension. Pulmonary: Continue bronchodilators as needed. Tolerating extubation past 24 hours. Renal/: IV hydration, strict intake output, monitor and replete electrolytes, follow BUN creatinine. GI/liver: Following extubation -> advancing by mouth CC/ADA diet ID: No indication for antibiotics at this time. Endocrine: Continue Levemir, sliding scale insulin Heme: Follow CBC Prophylaxis: SCDs. Lovenox 40 mg subcutaneously daily. Transfer to [facility] and floor. Bhargav Navarro MD Nov 22, 2017 08:31
[2017-11-22] MEDS: ENOXAPARIN SODIUM 40 MG/0.4 ML SYRINGE SQ SCH (18:32)
[2017-11-22] MEDS: INSULIN DETEMIR 100 UNITS/ML VIAL SQ SCH (20:43)
[2017-11-22] MEDS: chlordiazePOXIDE 25 MG CAP PO SCH (20:43)
[2017-11-23] VITALS (8 sets, daily range): BP systolic 118–149; BP diastolic 63–81; PULSE 71–109; RESP 18–23; TEMP 97.1–98.8; O2SAT 97–99
[2017-11-23] MEDS: CHLORHEXIDINE GLUCONATE 2 % 1 PACK (2 CLOTHS) TOP SCH (04:00)
[2017-11-23] MEDS: RESP: ALBUTEROL 2.5 MG/IPRATROPIUM 0.5 MG NEB (SCH) NEB ×3 (04:04→15:44)
[2017-11-23] MEDS: SODIUM CHLOR 0.9% 1000 ML INJ 1,000 ML IV SCH (06:00)
[2017-11-23] MEDS: INSULIN ASPART SUPPLEMENTAL SCALE SQ SCH ×4 (06:00→16:15)
[2017-11-23] MEDS: levETIRAcetam 500 MG TAB OG-TUBE SCH ×2 (06:11→16:12)
[2017-11-23 06:25] LABS: BICARBONATE 25.1 MEQ/L (21.0-32.0); CALCIUM 8.5 MG/DL (8.5-10.1); CREATININE 0.63 MG/DL (0.60-1.30)
[2017-11-23] MEDS: CHLORHEXIDINE 0.12% (ORAL KIT) 15 ML CUP MT SCH ×2 (08:00→20:00)
[2017-11-23] MEDS: SODIUM CHLORIDE 0.9% FLUSH 10 ML FLUSH IV FLUSH SCH ×2 (08:55→21:00)
[2017-11-23] MEDS: ASPIRIN 81 MG CHEW TAB CHEW SCH (08:55)
[2017-11-23] MEDS: FAMOTIDINE 20 MG TAB TUBE SCH ×2 (08:55→21:03)
[2017-11-23] MEDS ORDERED: POTASSIUM CHLORIDE 10 MEQ CONTROLLED RELEASE TAB PO ONE (09:30)
--- NOTE | 2017-11-23 13:24 | HHI.CCPN ---
Subjective Remarks/Hospital Course 11/19: 62-year-old homeless male with a medical history significant for diabetes mellitus, alcohol abuse, COPD, depression who was kept in obscured by hospitalist service after presenting on 11/18/2017 with left hand weakness and numbness along with tingling going on for 2 weeks. He underwent imaging studies including MRI brain which revealed right temporal occipital 1.9 x 1.5 cm subacute CVA. He was seen by neurology and started on aspirin. Today patient was noted to have a generalized tonic-clonic seizure for which rapid response team was called. I was contacted by rapid response team as patient was extremely lethargic and unresponsive following the seizure. I immediately reached patient's bedside and at the time of my evaluation he was unresponsive/comatose, not responding to painful stimuli and was being ventilated with bag mask ventilation by respiratory therapist. I proceeded with endotracheal intubation for airway protection after sedating him with a dominate using succinylcholine for neuromuscular blockade and patient was subsequently transferred to [facility] and placed on mechanical ventilation. He did have another seizure following arrival to the ICU which was generalized tonic- clonic in nature for which I ordered 4 mg IV Ativan. Patient was hypertensive and tachycardic following arrival to the ICU for which he received Lopressor 5 mg IV as well as Cardizem 20 mg IV. Keppra 1 g IV stat was ordered earlier. History was obtained by reviewing records and discussion with rapid response team as well as Dr. Leslie from hospitalist service. 11/20: Sedated, arousable at the time of my evaluation this morning. Was intubated at the time of my evaluation. No seizures overnight. 11/21: Disagreeable today but alert. No seizures. 11/22: Much more cooperative today. Tolerating diet. Waiting for bed. No seizures. 11/23: Glucose control improved, eating well. No seizures. Objective Vital Signs Date Time Temp Pulse Resp B/P (MAP) Pulse Ox O2 Delivery O2 Flow Rate FiO2 11/23/17 11:00 97.7 93 18 144/69 (94) 98 11/23/17 07:33 Room Air 11/22/17 09:35 21 11/20/17 10:43 2.00 Intake and Output 11/23/17 11/23/17 11/24/17 08:00 16:00 00:00 Intake Total 240 ml Output Total 900 ml Balance -660 ml Result Diagram: 11/20/17 0459 11/23/17 0547 Imaging Post intubation chest x-ray which was personally reviewed: ET tube above андрей , NG tube in place, lung tapia appear clear with no obvious infiltrates. Last Impressions Chest X-Ray 11/19/17 0000 Signed Impressions: Service Date/Time: Sunday, November 19, 2017 13:21 - CONCLUSION: No acute disease. Sumanth Lubin MD Head CT 11/18/17 0935 Signed Impressions: Service Date/Time: Saturday, November 18, 2017 10:13 - CONCLUSION: Negative for acute process Torres Smith MD FACR Cervical Spine MRI 11/18/17 0000 Signed Impressions: Service Date/Time: Saturday, November 18, 2017 12:26 - CONCLUSION: Minimal degenerative changes as described above worst at C5 on the left. I don't see enough findings to account for patient's symptomatology. There is no spinal stenosis. Torres Smith MD FACR Carotid Artery Ultrasound 11/18/17 0000 Signed Impressions: Service Date/Time: Saturday, November 18, 2017 16:30 - CONCLUSION: Negative for hemodynamically significant stenosis Torres Smith MD FACR Brain MRI 11/18/17 0000 Signed Impressions: Service Date/Time: Saturday, November 18, 2017 18:54 - CONCLUSION: 2 abnormal areas of signal including an elongated area in the jones matter I believe subacute stroke in the questionable 5 mm area of increased signal in the diffusion weighted sequences (series 7 image 39) could be a minor acute stroke. Leonel Mc MD Objective Remarks Neuro: Alert, conversant, pupils 2 mm bilaterally reacting actively to light. Plantars down, deep tendon reflexes +/+, no icterus, tongue/ mucosa moist Neck: Supple, airway widely patent. Strong cough. Chest/Pulm: Breathing comfortably. good air entry bilaterally, no wheezing or crackles CVS: S1-S2 regular, no murmur. No JVD. GI/abdomen: soft, nontender, bowel sounds active. No guarding. Extremities: warm bilaterally, no edema. Well perfused. A/P Assessment and Plan 62-year-old male with: Seizure most likely secondary to alcohol withdrawal Acute respiratory failure requiring mechanical ventilation for airway protection Alcohol abuse Secondary to right temporal occipital subacute ischemic stroke COPD Uncontrolled diabetes mellitus Hyponatremia Plan: Neuro: Loaded with Keppra which is being continued. Follow up EEG. Head CT on unremarkable. Neurology following. Continue aspirin. Follow neuro checks Cardiovascular: IV hydration, given IV Lopressor and Cardizem following arrival to ICU. Lisinopril 10 mg by mouth daily for hypertension. Pulmonary: Continue bronchodilators as needed. Tolerating extubation past 24 hours. Renal/: IV hydration, strict intake output, monitor and replete electrolytes, follow BUN creatinine. GI/liver: Following extubation -> advancing by mouth CC/ADA diet ID: No indication for antibiotics at this time. Endocrine: Continue Levemir, sliding scale insulin Heme: Follow CBC Prophylaxis: SCDs. Lovenox 40 mg subcutaneously daily. Transfer to [facility] and floor. music educator to see. Bhargav Navarro MD Nov 23, 2017 13:24
--- NOTE | 2017-11-23 14:33 | HHI.PR ---
Review/Management Diagnosis Acute ischemic stroke New onset hyperglycemia,resolved Seizure disorder Possibly related to withdrawal from Etoh Respiratory failure Plan Neuro checks Q 4h Keppra 750mg Q12h Aspirin 162 mg daily Seizure precautions DVT prophylaxis GI prophylaxis Diagnosis/Plan: Subjective Subjective Comments No acute events reported No reported seizure activity Patient with no new complaints Active Medications Current Medications Medications (Trade) Dose Ordered Sig/Chun Route Start Time Stop Time Status Last Admin (D50w (Vial) Inj) 50 ml UNSCH PRN IV PUSH 11/18/17 11:45 (Glucagon Inj) 1 mg UNSCH PRN OTHER 11/18/17 11:45 (Romazicon Inj) 0.2 mg Q1M PRN IV PUSH 11/18/17 11:45 (Ativan) 1 mg Q4H PRN PO 11/18/17 11:45 (Ativan Inj) 1 mg Q4H PRN IV PUSH 11/18/17 11:45 (Ativan) 2 mg Q2H PRN PO 11/18/17 11:45 (Ativan Inj) 2 mg Q2H PRN IV PUSH 11/18/17 11:45 (Ativan Inj) 2 mg Q1H PRN IV PUSH 11/18/17 11:45 (Ativan Inj) 2 mg Q15M PRN IV PUSH 11/18/17 11:45 11/19/17 12:39 (Levemir Inj) 10 units HS SQ 11/18/17 21:00 11/22/17 20:43 (Aspirin Chew) 162 mg DAILY CHEW 11/19/17 09:45 11/23/17 08:55 (NS Flush) 2 ml UNSCH PRN IV FLUSH 11/19/17 13:15 (NS Flush) 2 ml BID IV FLUSH 11/19/17 21:00 11/23/17 08:55 (Duoneb Neb) 1 ampule Q6HR NEB NEB 11/19/17 16:00 11/23/17 09:43 (Duoneb Neb) 1 ampule Q4HR NEB PRN INH 11/19/17 13:15 (Peridex 0.12% Liq) 15 ml BID@08,20 MT 11/19/17 20:00 11/22/17 07:58 (Pepcid) 20 mg BID TUBE 11/19/17 21:00 11/23/17 08:55 Miscellaneous Information 1 Q361D XX 11/19/17 13:15 11/19/17 13:15 (Chlorhexidine 2% Cloth) 3 pack Taper DAILY@04 TOP 11/20/17 04:00 11/16/18 03:59 (Chlorhexidine 2% Cloth) 3 pack UNSCH PRN TOP 11/19/17 13:15 (NovoLOG SUPPLEMENTAL SCALE) 1 Q6HR SQ 11/19/17 18:00 11/23/17 11:44 (Levemir Inj) 10 units STAT SQ 11/19/17 13:15 (Keppra) 750 mg Q12H OG-TUBE 11/19/17 18:00 11/23/17 06:11 (Lovenox Inj) 40 mg Q24H SQ 11/19/17 18:00 11/22/17 18:32 (Librium) 25 mg HS PO 11/20/17 21:00 11/22/17 20:43 Allergies Allergies Coded Allergies *MDRO Multi-Drug Resistant Organism (Verified Adverse Reaction, Unknown, ) Review of Systems All other ROS: ROS reviewed as documented in chart Exam I&O / VS 11/23/17 11/23/17 11/24/17 15:00 23:00 07:00 Intake Total 0 ml Balance 0 ml IV Total 0 ml Vital Signs Date Time Temp Pulse Resp B/P (MAP) Pulse Ox O2 Delivery O2 Flow Rate FiO2 11/23/17 12:00 76 11/23/17 11:00 97.7 93 18 144/69 (94) 98 11/23/17 08:13 74 11/23/17 08:00 98.8 78 23 125/68 (87) 97 11/23/17 07:33 Room Air 11/23/17 04:00 98.2 74 20 135/81 (99) 97 11/23/17 04:00 76 11/23/17 00:00 91 11/23/17 00:00 98.2 76 20 118/63 (81) 97 11/22/17 21:51 111 11/22/17 20:00 76 11/22/17 20:00 98.4 76 19 146/84 (104) 98 11/22/17 19:00 Room Air 11/22/17 16:00 98.0 130 16 139/95 (110) 97 11/22/17 16:00 130 Exam Comments Awake, alert, oriented Intact neurologic exam Objective Micro and Labs Laboratory Tests Test 11/23/17 05:47 Blood Urea Nitrogen 5 Creatinine 0.63 Random Glucose 165 Calcium Level 8.5 Sodium Level 141 Potassium Level 3.0 Chloride Level 107 Carbon Dioxide Level 25.1 Anion Gap 9 Estimat Glomerular Filtration Rate 129 Date/Time Source Procedure Growth Status 11/19/17 13:30 Sputum Endotracheal Gram Stain - Final Complete 11/19/17 13:30 Sputum Culture - Final Klebsiella Oxytoca Complete Johanny Trujillo MD Nov 23, 2017 14:33
[2017-11-23] MEDS: ENOXAPARIN SODIUM 40 MG/0.4 ML SYRINGE SQ SCH (16:13)
[2017-11-23] MEDS: INSULIN DETEMIR 100 UNITS/ML VIAL SQ SCH (21:00)
[2017-11-23] MEDS: chlordiazePOXIDE 25 MG CAP PO SCH (21:03)
[2017-11-24] VITALS (7 sets, daily range): BP systolic 127–157; BP diastolic 58–91; PULSE 55–109; RESP 18–20; TEMP 97.9–98.9; O2SAT 94–98
[2017-11-24] MEDS: CHLORHEXIDINE GLUCONATE 2 % 1 PACK (2 CLOTHS) TOP SCH (03:20)
[2017-11-24] MEDS: levETIRAcetam 500 MG TAB OG-TUBE SCH ×2 (05:36→16:55)
[2017-11-24] MEDS: INSULIN ASPART SUPPLEMENTAL SCALE SQ SCH ×5 (05:37→20:55)
[2017-11-24] MEDS: CHLORHEXIDINE 0.12% (ORAL KIT) 15 ML CUP MT SCH ×2 (08:00→20:00)
[2017-11-24 08:14] LABS: AUTOMATED NEUTROPHIL # 2.9 TH/MM3 (1.8-7.7); BASOPHIL % 0.5 % (0.0-2.0); EOSINOPHIL # 0.1 TH/MM3 (0-0.4); EOSINOPHIL % 1.3 % (0.0-4.0); HEMATOCRIT 37.6 % (39.0-51.0); LYMPH % 42.5 % (9.0-44.0); LYMPHOCYTE # 2.6 TH/MM3 (1.0-4.8); MEAN CELL VOLUME 93.9 FL (80.0-100.0); MEAN CORPUSCULAR HEMOGLOBIN 32.5 PG (27.0-34.0); MEAN CORPUSCULAR HGB CONC 34.6 % (32.0-36.0); MEAN PLATELET VOLUME 9.5 FL (7.0-11.0); MONO % 8.3 % (0.0-8.0); MONOCYTE # 0.5 TH/MM3 (0-0.9); NEUT % 47.4 % (16.0-70.0); PLATELET COUNT 144 TH/MM3 (150-450); RED CELL DISTRIBUTION WIDTH 12.5 % (11.6-17.2); WHITE BLOOD COUNT 6.2 TH/MM3 (4.0-11.0)
[2017-11-24 08:32] LABS: ALBUMIN 2.8 GM/DL (3.4-5.0); AST (GOT) 27 U/L (15-37); BICARBONATE 24.7 MEQ/L (21.0-32.0); BLOOD UREA NITROGEN 6 MG/DL (7-18); CALCIUM 8.6 MG/DL (8.5-10.1); CHLORIDE 106 MEQ/L (98-107); CREATININE 0.63 MG/DL (0.60-1.30); GLOMERULAR FILTRATION RATE 129 ML/MIN (>89); GLUCOSE,RANDOM 163 MG/DL (74-106); MAGNESIUM 1.8 MG/DL (1.5-2.5); SODIUM (NA) 141 MEQ/L (136-145)
[2017-11-24 08:35] LABS: ALKALINE PHOSPHATASE 96 U/L (45-117); ALT (GPT) 38 U/L (12-78); PHOSPHORUS 3.3 MG/DL (2.5-4.9); TOTAL BILIRUBIN ADULT 0.4 MG/DL (0.2-1.0); TOTAL PROTEIN 6.5 GM/DL (6.4-8.2)
[2017-11-24] MEDS: FAMOTIDINE 20 MG TAB TUBE SCH ×2 (08:52→20:50)
[2017-11-24] MEDS: SODIUM CHLORIDE 0.9% FLUSH 10 ML FLUSH IV FLUSH SCH ×2 (08:52→21:03)
[2017-11-24] MEDS: ASPIRIN 81 MG CHEW TAB CHEW SCH (08:52)
[2017-11-24] MEDS ORDERED: POTASSIUM CHLORIDE 10 MEQ CONTROLLED RELEASE TAB PO ONE (11:00)
--- NOTE | 2017-11-24 16:19 | HHI.PR ---
Subjective Remarks Denies seizure. Denies cp/sob. Objective Vitals Vital Signs Date Time Temp Pulse Resp B/P (MAP) Pulse Ox O2 Delivery O2 Flow Rate FiO2 11/24/17 12:00 66 11/24/17 12:00 97.9 55 18 128/58 (81) 98 11/24/17 09:10 Room Air 11/24/17 08:00 98.5 83 20 128/77 (94) 96 11/24/17 08:00 68 11/24/17 04:00 98.5 73 18 127/68 (87) 96 11/24/17 04:00 Room Air 11/24/17 04:00 74 11/24/17 00:00 98.2 98 18 132/91 (105) 96 11/24/17 00:00 Room Air 11/24/17 00:00 109 11/23/17 20:00 109 11/23/17 20:00 97.1 106 19 123/68 (86) 97 11/23/17 20:00 Room Air 11/23/17 16:00 97.8 71 18 149/78 (101) 99 11/23/17 16:00 75 I/O 11/23/17 11/23/17 11/23/17 11/24/17 11/24/17 11/24/17 07:00 15:00 23:00 07:00 15:00 23:00 Intake Total 240 ml 0 ml 480 ml 950 ml Output Total 900 ml Balance -660 ml 0 ml 480 ml 950 ml Intake Oral 240 ml 480 ml 950 ml IV Total 0 ml Output Urine Total 900 ml # Voids 1 4 # Bowel Movements 0 Result Diagram: 11/24/1730 11/24/17 0630 Imaging Last Impressions Head CT 11/19/17 0000 Signed Impressions: Service Date/Time: Sunday, November 19, 2017 16:15 - CONCLUSION: Stable noncontrast head CT Sumanth Lubin MD Chest X-Ray 11/19/17 0000 Signed Impressions: Service Date/Time: Sunday, November 19, 2017 13:21 - CONCLUSION: No acute disease. Sumanth Lubin MD Cervical Spine MRI 11/18/17 0000 Signed Impressions: Service Date/Time: Saturday, November 18, 2017 12:26 - CONCLUSION: Minimal degenerative changes as described above worst at C5 on the left. I don't see enough findings to account for patient's symptomatology. There is no spinal stenosis. Torres Smith MD FACR Carotid Artery Ultrasound 11/18/17 0000 Signed Impressions: Service Date/Time: Saturday, November 18, 2017 16:30 - CONCLUSION: Negative for hemodynamically significant stenosis Torres Smith MD FACR Brain MRI 11/18/17 0000 Signed Impressions: Service Date/Time: Saturday, November 18, 2017 18:54 - CONCLUSION: 2 abnormal areas of signal including an elongated area in the jones matter I believe subacute stroke in the questionable 5 mm area of increased signal in the diffusion weighted sequences (series 7 image 39) could be a minor acute stroke. Leonel Mc MD Objective Remarks Neuro: Alert, conversant, pupils 2 mm bilaterally reacting actively to light. Plantars down, deep tendon reflexes +/+, no icterus, tongue/ mucosa moist Neck: Supple, airway widely patent. Strong cough. Chest/Pulm: Breathing comfortably. good air entry bilaterally, no wheezing or crackles CVS: S1-S2 regular, no murmur. No JVD. GI/abdomen: soft, nontender, bowel sounds active. No guarding. Extremities: warm bilaterally, no edema. Well perfused. Procedures Intubation with mechanical ventilation. Medications and IVs Current Medications Medications (Trade) Dose Ordered Sig/Chun Route Start Time Stop Time Status Last Admin (D50w (Vial) Inj) 50 ml UNSCH PRN IV PUSH 11/18/17 11:45 (Glucagon Inj) 1 mg UNSCH PRN OTHER 11/18/17 11:45 (Romazicon Inj) 0.2 mg Q1M PRN IV PUSH 11/18/17 11:45 (Ativan) 1 mg Q4H PRN PO 11/18/17 11:45 (Ativan Inj) 1 mg Q4H PRN IV PUSH 11/18/17 11:45 (Ativan) 2 mg Q2H PRN PO 11/18/17 11:45 (Ativan Inj) 2 mg Q2H PRN IV PUSH 11/18/17 11:45 (Ativan Inj) 2 mg Q1H PRN IV PUSH 11/18/17 11:45 (Ativan Inj) 2 mg Q15M PRN IV PUSH 11/18/17 11:45 11/19/17 12:39 (Levemir Inj) 10 units HS SQ 11/18/17 21:00 11/23/17 21:00 (Aspirin Chew) 162 mg DAILY CHEW 11/19/17 09:45 11/24/17 08:52 (NS Flush) 2 ml UNSCH PRN IV FLUSH 11/19/17 13:15 (NS Flush) 2 ml BID IV FLUSH 11/19/17 21:00 11/24/17 08:52 (Duoneb Neb) 1 ampule Q4HR NEB PRN INH 11/19/17 13:15 11/23/17 19:27 (Peridex 0.12% Liq) 15 ml BID@08,20 MT 11/19/17 20:00 11/22/17 07:58 (Pepcid) 20 mg BID TUBE 11/19/17 21:00 11/24/17 08:52 Miscellaneous Information 1 Q361D XX 11/19/17 13:15 11/19/17 13:15 (Chlorhexidine 2% Cloth) 3 pack Taper DAILY@04 TOP 11/20/17 04:00 11/16/18 03:59 (Chlorhexidine 2% Cloth) 3 pack UNSCH PRN TOP 11/19/17 13:15 (NovoLOG SUPPLEMENTAL SCALE) 1 Q6HR SQ 11/19/17 18:00 11/24/17 11:27 (Levemir Inj) 10 units STAT SQ 11/19/17 13:15 (Keppra) 750 mg Q12H OG-TUBE 11/19/17 18:00 11/24/17 05:36 (Lovenox Inj) 40 mg Q24H SQ 11/19/17 18:00 11/23/17 16:13 (Librium) 25 mg HS PO 11/20/17 21:00 11/23/17 21:03 A/P Problem List: (1) Acute hypoxemic respiratory failure ICD Code: J96.01 - Acute respiratory failure with hypoxia Plan: Patient was initially admitted to the medical floor. The patient had onset of generalized tonic clonic seizure after which an CABLE TESTER was called. The patient was seen immediately by the rapid response team who called the lead assistant manager who proceeded to intubate the patient due to the patient being, dose and lethargic. The patient was then transferred to and placed on mechanical ventilation. The patient had a second generalized tonic-clonic seizure which was controlled by IV Ativan. The patient was started on Keppra and sedated. The patient did not have any further seizures and was later extubated successfully. The patient has been transferred to my care for further management. Continue supplemental oxygen to keep oxygen saturations more than 92%. The patient is currently on room air satting 98%. (2) Seizure due to alcohol withdrawal ICD Code: F10.239 - Alcohol dependence with withdrawal, unspecified; R56.9 - Unspecified convulsions Status: Resolved Plan: Eddie consulted on following the patient. Continue anticonvulsants as per neurology. The patient currently on Keppra 750 minutes by mouth twice a day. EEG obtained on 05/20/18 was abnormal with a pattern consistent of encephalopathy. Pattern thought to be related to medication, metabolic or hypoxic lesion. (3) CVA (cerebral vascular accident) ICD Code: I63.9 - Cerebral infarction, unspecified Plan: CT of the head was negative for acute process. However MRI showed signs of subacute CVA. Neurology consulted on following. Continue aspirin (4) Uncontrolled diabetes mellitus ICD Code: E11.65 - Type 2 diabetes mellitus with hyperglycemia Plan: Blood sugars are severely elevated the 200s range. Continue SSI with insulin NovoLog and continue to monitor Accu-Cheks. Hemoglobin A1c is 12.4, the patient likely will need to be discharged home on metformin and glipizide versus insulin. Given that patient is home less. Will DC Levemir and start the patient on insulin NPH/regular 70/30. We'll also consult telehealth nurse educator to teach the patient how to inject subcutaneous insulin. We'll consult dietitian as well instructed the patient on proper nutrition for the diabetic patient. (5) Alcoholism /alcohol abuse ICD Code: F10.20 - Alcoholism Status: Chronic Plan: Advised cessation. (6) Tobacco abuse ICD Code: Z72.0 - Tobacco abuse Status: Chronic Plan: Advised tobacco cessation. (7) COPD (chronic obstructive pulmonary disease) ICD Code: J44.9 - Chronic obstructive pulmonary disease, unspecified Status: Chronic Plan: COPD seems to be stable. (8) Hyponatremia ICD Code: E87.1 - Hypo-osmolality and hyponatremia Plan: She presented with sodium of 128, likely contributing to seizure disorder presented by this patient. He was treated with normal saline which quickly corrected the deficit. Continue to monitor BMP. (9) Hypokalemia ICD Code: E87.6 - Hypokalemia Plan: Replace orally and continue to monitor BMP. Magnesium is within normal range. Assessment and Plan GI prophylaxis: Continue PPI. DVT prophylaxis: SCDs, continue Lovenox subcutaneous. Discharge Planning Pending neurology clearance, stabilization of blood sugars, diabetes and nutrition consult for diabetes education. Problem Qualifiers (1) Seizure due to alcohol withdrawal: Qualified Codes: F10.239 - Alcohol dependence with withdrawal, unspecified; R56.9 - Unspecified convulsions (2) Uncontrolled diabetes mellitus: Qualified Codes: E11.65 - Type 2 diabetes mellitus with hyperglycemia (3) COPD (chronic obstructive pulmonary disease): Qualified Codes: J44.9 - Chronic obstructive pulmonary disease, unspecified Paddy Tubbs MD Nov 24, 2017 16:19
[2017-11-24] MEDS: ENOXAPARIN SODIUM 40 MG/0.4 ML SYRINGE SQ SCH (16:56)
[2017-11-24] MEDS: chlordiazePOXIDE 25 MG CAP PO SCH (20:50)
[2017-11-24] MEDS: INSULIN DETEMIR 100 UNITS/ML VIAL SQ SCH (20:56)
[2017-11-25] VITALS (8 sets, daily range): BP systolic 118–140; BP diastolic 67–89; PULSE 63–130; RESP 18–20; TEMP 98–98.7; O2SAT 94–97
[2017-11-25] MEDS: CHLORHEXIDINE GLUCONATE 2 % 1 PACK (2 CLOTHS) TOP SCH (04:00)
[2017-11-25] MEDS: levETIRAcetam 500 MG TAB OG-TUBE SCH ×2 (05:10→17:10)
[2017-11-25] MEDS: INSULIN ASPART SUPPLEMENTAL SCALE SQ SCH ×4 (05:26→23:34)
[2017-11-25] MEDS: CHLORHEXIDINE 0.12% (ORAL KIT) 15 ML CUP MT SCH ×2 (08:00→19:55)
[2017-11-25] MEDS ORDERED: INSULIN HUMAN NPH/R 70/30 1,000 UNITS/10 ML VIAL SQ SCH (08:00)
[2017-11-25] MEDS: ASPIRIN 81 MG CHEW TAB CHEW SCH (08:29)
[2017-11-25] MEDS: FAMOTIDINE 20 MG TAB TUBE SCH ×2 (08:29→20:07)
[2017-11-25] MEDS: INSULIN DETEMIR 100 UNITS/ML VIAL SQ SCH ×2 (08:30→20:07)
[2017-11-25] MEDS: SODIUM CHLORIDE 0.9% FLUSH 10 ML FLUSH IV FLUSH SCH ×2 (08:32→19:56)
[2017-11-25] MEDS ORDERED: NICOTINE 21 MG/24 HR PATCH T-DERMAL ONE (12:15)
--- NOTE | 2017-11-25 16:24 | HHI.PR ---
Subjective Remarks Patient denies cp/sob. Patient tachycardic Denies fevers or chills Objective Vitals Vital Signs Date Time Temp Pulse Resp B/P (MAP) Pulse Ox O2 Delivery O2 Flow Rate FiO2 11/25/17 12:00 98.4 88 20 118/75 (89) 95 11/25/17 12:00 93 11/25/17 08:00 98.6 76 20 130/73 (92) 94 11/25/17 08:00 71 11/25/17 07:41 Room Air 11/25/17 04:00 63 11/25/17 04:00 98.0 94 18 125/80 (95) 97 11/25/17 00:00 98.4 90 18 120/67 (84) 97 11/24/17 21:00 Room Air 11/24/17 21:00 69 11/24/17 20:00 98.2 87 18 157/83 (107) 98 I/O 11/24/17 11/24/17 11/24/17 11/25/17 11/25/17 11/25/17 07:00 15:00 23:00 07:00 15:00 23:00 Intake Total 950 ml 480 ml Balance 950 ml 480 ml Intake Oral 950 ml 480 ml # Voids 4 6 5 # Bowel Movements 0 Result Diagram: 11/24/1730 11/24/17 0630 Imaging Last Impressions Head CT 11/19/17 0000 Signed Impressions: Service Date/Time: Sunday, November 19, 2017 16:15 - CONCLUSION: Stable noncontrast head CT Sumanth Lubin MD Chest X-Ray 11/19/17 0000 Signed Impressions: Service Date/Time: Sunday, November 19, 2017 13:21 - CONCLUSION: No acute disease. Sumanth Lubin MD Cervical Spine MRI 11/18/17 0000 Signed Impressions: Service Date/Time: Saturday, November 18, 2017 12:26 - CONCLUSION: Minimal degenerative changes as described above worst at C5 on the left. I don't see enough findings to account for patient's symptomatology. There is no spinal stenosis. Torres Smith MD FACR Carotid Artery Ultrasound 11/18/17 0000 Signed Impressions: Service Date/Time: Saturday, November 18, 2017 16:30 - CONCLUSION: Negative for hemodynamically significant stenosis Torres Smith MD FACR Brain MRI 11/18/17 0000 Signed Impressions: Service Date/Time: Saturday, November 18, 2017 18:54 - CONCLUSION: 2 abnormal areas of signal including an elongated area in the jones matter I believe subacute stroke in the questionable 5 mm area of increased signal in the diffusion weighted sequences (series 7 image 39) could be a minor acute stroke. Leonel Mc MD Objective Remarks Neuro: Alert, conversant, pupils 2 mm bilaterally reacting actively to light. Plantars down, deep tendon reflexes +/+, no icterus, tongue/ mucosa moist Neck: Supple, airway widely patent. Strong cough. Chest/Pulm: Breathing comfortably. good air entry bilaterally, no wheezing or crackles CVS: S1-S2 regular, no murmur. No JVD. GI/abdomen: soft, nontender, bowel sounds active. No guarding. Extremities: warm bilaterally, no edema. Well perfused. Procedures Intubation with mechanical ventilation. Medications and IVs Last Impressions Head CT 11/19/17 0000 Signed Impressions: Service Date/Time: Sunday, November 19, 2017 16:15 - CONCLUSION: Stable noncontrast head CT Sumanth Lubin MD Chest X-Ray 11/19/17 0000 Signed Impressions: Service Date/Time: Sunday, November 19, 2017 13:21 - CONCLUSION: No acute disease. Sumanth Lubin MD Cervical Spine MRI 11/18/17 0000 Signed Impressions: Service Date/Time: Saturday, November 18, 2017 12:26 - CONCLUSION: Minimal degenerative changes as described above worst at C5 on the left. I don't see enough findings to account for patient's symptomatology. There is no spinal stenosis. Torres Smith MD FACR Carotid Artery Ultrasound 11/18/17 0000 Signed Impressions: Service Date/Time: Saturday, November 18, 2017 16:30 - CONCLUSION: Negative for hemodynamically significant stenosis Torres Smith MD FACR Brain MRI 11/18/17 0000 Signed Impressions: Service Date/Time: Saturday, November 18, 2017 18:54 - CONCLUSION: 2 abnormal areas of signal including an elongated area in the jones matter I believe subacute stroke in the questionable 5 mm area of increased signal in the diffusion weighted sequences (series 7 image 39) could be a minor acute stroke. Leonel Mc MD A/P Problem List: (1) Acute hypoxemic respiratory failure ICD Code: J96.01 - Acute respiratory failure with hypoxia Plan: Patient was initially admitted to the medical floor. The patient had onset of generalized tonic clonic seizure after which an LIVE IN HOUSEKEEPER was called. The patient was seen immediately by the rapid response team who called the analytics specialist who proceeded to intubate the patient due to the patient being, dose and lethargic. The patient was then transferred to and placed on mechanical ventilation. The patient had a second generalized tonic-clonic seizure which was controlled by IV Ativan. The patient was started on Keppra and sedated. The patient did not have any further seizures and was later extubated successfully. The patient has been transferred to my care for further management. Continue supplemental oxygen to keep oxygen saturations more than 92%. The patient is currently on room air satting 98%. (2) Seizure due to alcohol withdrawal ICD Code: F10.239 - Alcohol dependence with withdrawal, unspecified; R56.9 - Unspecified convulsions Status: Resolved Plan: Eddie consulted on following the patient. Continue anticonvulsants as per neurology. The patient currently on Keppra 750 minutes by mouth twice a day. EEG obtained on 05/20/18 was abnormal with a pattern consistent of encephalopathy. Pattern thought to be related to medication, metabolic or hypoxic lesion. (3) CVA (cerebral vascular accident) ICD Code: I63.9 - Cerebral infarction, unspecified Plan: CT of the head was negative for acute process. However MRI showed signs of subacute CVA. Neurology consulted on following. Continue aspirin (4) Uncontrolled diabetes mellitus ICD Code: E11.65 - Type 2 diabetes mellitus with hyperglycemia Plan: Blood sugars are severely elevated the 200s range. Continue SSI with insulin NovoLog and continue to monitor Accu-Cheks. Hemoglobin A1c is 12.4, the patient likely will need to be discharged home on metformin and glipizide versus insulin. 11/25 sugars are still very elevated and uncontrolled. I will increase insulin Levemir to 15 units subcutaneous twice a day and place on prandial insulin with insulin NovoLog 10 units 3 times a day use it. Continue to monitor Accu-Cheks and continue SSI. (5) Alcoholism /alcohol abuse ICD Code: F10.20 - Alcoholism Status: Chronic Plan: Advised cessation. (6) Tobacco abuse ICD Code: Z72.0 - Tobacco abuse Status: Chronic Plan: Advised tobacco cessation. (7) COPD (chronic obstructive pulmonary disease) ICD Code: J44.9 - Chronic obstructive pulmonary disease, unspecified Status: Chronic Plan: COPD seems to be stable. On DuoNeb nebulizers. (8) Hyponatremia ICD Code: E87.1 - Hypo-osmolality and hyponatremia Plan: Patient presented with sodium of 128, likely contributing to seizure disorder presented by this patient. He was treated with normal saline which quickly corrected the deficit. Continue to monitor BMP. (9) Hypokalemia ICD Code: E87.6 - Hypokalemia Plan: Replace orally and continue to monitor BMP. Magnesium is within normal range. 11/25 potassium still low but improved at 2.2. I will continue to replace orally. (10) Atrial tachycardia ICD Code: I47.1 - Supraventricular tachycardia Plan: Patient became tachycardic. EKG ordered stat and showed atrial tachycardia without st - t chabges. Rx Metorpolol tartrate 50 minutes by mouth once and increase the Toprol tartrate to 50 mg by mouth twice a day. Assessment and Plan GI prophylaxis: Continue PPI. DVT prophylaxis: SCDs, continue Lovenox subcutaneous. Discharge Planning Pending neurology clearance, stabilization of blood sugars, diabetes and nutrition consult for diabetes education. Problem Qualifiers (1) Seizure due to alcohol withdrawal: Qualified Codes: F10.239 - Alcohol dependence with withdrawal, unspecified; R56.9 - Unspecified convulsions (2) Uncontrolled diabetes mellitus: Qualified Codes: E11.65 - Type 2 diabetes mellitus with hyperglycemia (3) COPD (chronic obstructive pulmonary disease): Qualified Codes: J44.9 - Chronic obstructive pulmonary disease, unspecified Paddy Tubbs MD Nov 25, 2017 16:24
--- NOTE | 2017-11-25 16:28 | HHI.PR ---
Subjective Remarks Patient denies cp/sob. Patient tachycardic Denies fevers or chills Objective Vitals Vital Signs Date Time Temp Pulse Resp B/P (MAP) Pulse Ox O2 Delivery O2 Flow Rate FiO2 11/25/17 12:00 98.4 88 20 118/75 (89) 95 11/25/17 12:00 93 11/25/17 08:00 98.6 76 20 130/73 (92) 94 11/25/17 08:00 71 11/25/17 07:41 Room Air 11/25/17 04:00 63 11/25/17 04:00 98.0 94 18 125/80 (95) 97 11/25/17 00:00 98.4 90 18 120/67 (84) 97 11/24/17 21:00 Room Air 11/24/17 21:00 69 11/24/17 20:00 98.2 87 18 157/83 (107) 98 I/O 11/24/17 11/24/17 11/24/17 11/25/17 11/25/17 11/25/17 07:00 15:00 23:00 07:00 15:00 23:00 Intake Total 950 ml 480 ml Balance 950 ml 480 ml Intake Oral 950 ml 480 ml # Voids 4 6 5 # Bowel Movements 0 Result Diagram: 11/24/1762911/24/17629 Objective Remarks Neuro: Alert, conversant, pupils 2 mm bilaterally reacting actively to light. Plantars down, deep tendon reflexes +/+, no icterus, tongue/ mucosa moist Neck: Supple, airway widely patent. Strong cough. Chest/Pulm: Breathing comfortably. good air entry bilaterally, no wheezing or crackles CVS: S1-S2 regular, no murmur. No JVD. GI/abdomen: soft, nontender, bowel sounds active. No guarding. Extremities: warm bilaterally, no edema. Well perfused. Procedures Intubation with mechanical ventilation. A/P Problem List: (1) Acute hypoxemic respiratory failure ICD Code: J96.01 - Acute respiratory failure with hypoxia (2) Seizure due to alcohol withdrawal ICD Code: F10.239 - Alcohol dependence with withdrawal, unspecified; R56.9 - Unspecified convulsions Status: Resolved (3) CVA (cerebral vascular accident) ICD Code: I63.9 - Cerebral infarction, unspecified (4) Uncontrolled diabetes mellitus ICD Code: E11.65 - Type 2 diabetes mellitus with hyperglycemia (5) Alcoholism /alcohol abuse ICD Code: F10.20 - Alcoholism Status: Chronic (6) Tobacco abuse ICD Code: Z72.0 - Tobacco abuse Status: Chronic (7) COPD (chronic obstructive pulmonary disease) ICD Code: J44.9 - Chronic obstructive pulmonary disease, unspecified Status: Chronic (8) Hyponatremia ICD Code: E87.1 - Hypo-osmolality and hyponatremia (9) Hypokalemia ICD Code: E87.6 - Hypokalemia (10) Atrial tachycardia ICD Code: I47.1 - Supraventricular tachycardia Assessment and Plan (1) Acute hypoxemic respiratory failure ICD Code: J96.01 - Acute respiratory failure with hypoxia Plan: Patient was initially admitted to the medical floor. The patient had onset of generalized tonic clonic seizure after which an DELIVERY RN was called. The patient was seen immediately by the rapid response team who called the bar useful or busser who proceeded to intubate the patient due to the patient being, dose and lethargic. The patient was then transferred to and placed on mechanical ventilation. The patient had a second generalized tonic-clonic seizure which was controlled by IV Ativan. The patient was started on Keppra and sedated. The patient did not have any further seizures and was later extubated successfully. The patient has been transferred to my care for further management. Continue supplemental oxygen to keep oxygen saturations more than 92%. The patient is currently on room air satting 98%. (2) Seizure due to alcohol withdrawal ICD Code: F10.239 - Alcohol dependence with withdrawal, unspecified; R56.9 - Unspecified convulsions Status: Resolved Plan: Eddie consulted on following the patient. Continue anticonvulsants as per neurology. The patient currently on Keppra 750 minutes by mouth twice a day. EEG obtained on 05/20/18 was abnormal with a pattern consistent of encephalopathy. Pattern thought to be related to medication, metabolic or hypoxic lesion. (3) CVA (cerebral vascular accident) ICD Code: I63.9 - Cerebral infarction, unspecified Plan: CT of the head was negative for acute process. However MRI showed signs of subacute CVA. Neurology consulted on following. Continue aspirin (4) Uncontrolled diabetes mellitus ICD Code: E11.65 - Type 2 diabetes mellitus with hyperglycemia Plan: Blood sugars are severely elevated the 200s range. Continue SSI with insulin NovoLog and continue to monitor Accu-Cheks. Hemoglobin A1c is 12.4, the patient likely will need to be discharged home on metformin and glipizide versus insulin. 11/25 sugars are still very elevated and uncontrolled. I will increase insulin Levemir to 15 units subcutaneous twice a day and place on prandial insulin with insulin NovoLog 10 units 3 times a day use it. Continue to monitor Accu-Cheks and continue SSI. (5) Alcoholism /alcohol abuse ICD Code: F10.20 - Alcoholism Status: Chronic Plan: Advised cessation. (6) Tobacco abuse ICD Code: Z72.0 - Tobacco abuse Status: Chronic Plan: Advised tobacco cessation. (7) COPD (chronic obstructive pulmonary disease) ICD Code: J44.9 - Chronic obstructive pulmonary disease, unspecified Status: Chronic Plan: COPD seems to be stable. On DuoNeb nebulizers. (8) Hyponatremia ICD Code: E87.1 - Hypo-osmolality and hyponatremia Plan: Patient presented with sodium of 128, likely contributing to seizure disorder presented by this patient. He was treated with normal saline which quickly corrected the deficit. Continue to monitor BMP. (9) Hypokalemia ICD Code: E87.6 - Hypokalemia Plan: Replace orally and continue to monitor BMP. Magnesium is within normal range. 11/25 potassium still low but improved at 2.2. I will continue to replace orally. GI prophylaxis: Continue PPI. DVT prophylaxis: SCDs, continue Lovenox subcutaneous. Discharge Planning Pending neurology clearance, stabilization of blood sugars, diabetes and nutrition consult for diabetes education. Problem Qualifiers (1) Seizure due to alcohol withdrawal: Qualified Codes: F10.239 - Alcohol dependence with withdrawal, unspecified; R56.9 - Unspecified convulsions (2) Uncontrolled diabetes mellitus: Qualified Codes: E11.65 - Type 2 diabetes mellitus with hyperglycemia (3) COPD (chronic obstructive pulmonary disease): Qualified Codes: J44.9 - Chronic obstructive pulmonary disease, unspecified Paddy Tubbs MD Nov 25, 2017 16:28
[2017-11-25] MEDS ORDERED: POTASSIUM CHLORIDE 10 MEQ CONTROLLED RELEASE TAB PO ONE (16:30)
[2017-11-25] MEDS ORDERED: MAGNESIUM SULFATE 1 GM PREMIX 100 ML IV ONE (16:45)
[2017-11-25] MEDS ORDERED: METOPROLOL TARTRATE 50 MG TAB PO ONE (16:45)
[2017-11-25] MEDS: INSULIN ASPART 1,000 UNITS/10 ML VIAL SQ SCH (17:07)
[2017-11-25] MEDS: ENOXAPARIN SODIUM 40 MG/0.4 ML SYRINGE SQ SCH (17:09)
--- NOTE | 2017-11-25 19:22 | PD.ID.CON ---
History of Present Illness Service ID Consult Requested By Dr Brock Reason for Consult + spiutum clx Primary Care Physician [facility] Diagnoses: History of Present Illness 62 yo male admitted with diabetes mellitus, alcohol abuse, COPD, depression ETOH withdrawl seizure He developpeed with left hand weakness and numbness along with tingling going on for 2 weeks. He underwent imaging studies including MRI brain which revealed right temporal occipital 1.9 x 1.5 cm subacute CVA. He was seen by neurology and started on aspirin. Pt was intubated, placed on mech vent'n and started on Ativan. He remained briefly on vent , extubated transferred to floor S\z are controlled, pt has some productive cough that according to his is his baselinbe His CXR is negative He is afebrile with nl WBC His sputum clx is growing Kleb pneumo Review of Systems Except as stated in HPI: all other systems reviewed are Neg Past Family Social History Allergies: Coded Allergies: *MDRO Multi-Drug Resistant Organism (Verified Adverse Reaction, Unknown, ) MRSA (arm) - 06/01/08 MRSA PCR Screen #1 NEGATIVE - 12/12/16 Past Medical History PMH: Depression, Bipolar Disorder, BPH, HTN and Hyperlipidemia Past Surgical History Back Surgery, Cholecystectomy, Cataract Surgery Active Ordered Medications Medications where reviewed in EMR Antibiotics Include: none Family History Reviewed. No h/o DM or CAD Social History tobacco 2 PPD + ETOH no reported IVDU Physical Exam Vital Signs Vital Signs Date Time Temp Pulse Resp B/P (MAP) Pulse Ox O2 Delivery O2 Flow Rate FiO2 11/25/17 16:00 98.1 128 20 140/89 (106) 96 11/25/17 15:46 130 11/25/17 12:00 98.4 88 20 118/75 (89) 95 11/25/17 12:00 93 11/25/17 08:00 98.6 76 20 130/73 (92) 94 11/25/17 08:00 71 11/25/17 07:41 Room Air 11/25/17 04:00 63 11/25/17 04:00 98.0 94 18 125/80 (95) 97 11/25/17 00:00 98.4 90 18 120/67 (84) 97 11/24/17 21:00 Room Air 11/24/17 21:00 69 11/24/17 20:00 98.2 87 18 157/83 (232) 98 Physical Exam CONSTITUTIONAL/GENERAL: This is an adequately nourished patient, in no apparent distress. TUBES/LINES/DRAINS: SKIN: No jaundice, rashes, or lesions. Skin temperature appropriate. Not diaphoretic. HEAD: Atraumatic. Normocephalic. EYES: Pupils equal and round and reactive. Extraocular motions intact. No scleral icterus. No injection or drainage. Fundi not examined. ENT: Hearing grossly normal. Nose without bleeding or purulent drainage. Oral mucosae without visible erythema, exudates, masses, or lesions. POor dentition NECK: Trachea midline. Supple, nontender. No palpable thyroid enlargement or nodularity. CARDIOVASCULAR: Regular rate and rhythm without murmurs, gallops, or rubs. No JVD. Peripheral pulses symmetric. RESPIRATORY/CHEST: Symmetric, unlabored respirations. Clear to auscultation. Breath sounds equally diminsishde bilaterally. No wheezes, rales, or rhonchi. GASTROINTESTINAL: Abdomen soft, non-tender, nondistended. No hepato-splenomegaly , or palpable masses. No guarding. Bowel sounds present. GENITOURINARY: Without palpable bladder distension. MUSCULOSKELETAL: Extremities without clubbing, cyanosis, or edema. No joint tenderness or effusion noted. No calf tenderness. No mottling or clubbing. LYMPHATICS: No palpable cervical or supraclavicular adenopathy. NEUROLOGICAL: Awake and alert. Motor and sensory grossly within normal limits. Follows commands. Clear speech. Moves all extremities. PSYCHIATRIC: No obvious anxiety/depression. no apparent hallucinations or other psychotic thought process. Laboratory Date/Time Source Procedure Growth Status 11/19/17 13:30 Sputum Endotracheal Gram Stain - Final Complete 11/19/17 13:30 Sputum Culture - Final Klebsiella Oxytoca Complete Result Diagram: 11/24/17 0630 11/24/17 0630 Course Last Impressions Head CT 11/19/17 0000 Signed Impressions: Service Date/Time: Sunday, November 19, 2017 16:15 - CONCLUSION: Stable noncontrast head CT Sumanth Lubin MD Chest X-Ray 11/19/17 0000 Signed Impressions: Service Date/Time: Sunday, November 19, 2017 13:21 - CONCLUSION: No acute disease. Sumanth Lubin MD Cervical Spine MRI 11/18/17 0000 Signed Impressions: Service Date/Time: Saturday, November 18, 2017 12:26 - CONCLUSION: Minimal degenerative changes as described above worst at C5 on the left. I don't see enough findings to account for patient's symptomatology. There is no spinal stenosis. Torres Smith MD FACR Carotid Artery Ultrasound 11/18/17 0000 Signed Impressions: Service Date/Time: Saturday, November 18, 2017 16:30 - CONCLUSION: Negative for hemodynamically significant stenosis Torres Smith MD FACR Brain MRI 11/18/17 0000 Signed Impressions: Service Date/Time: Saturday, November 18, 2017 18:54 - CONCLUSION: 2 abnormal areas of signal including an elongated area in the jones matter I believe subacute stroke in the questionable 5 mm area of increased signal in the diffusion weighted sequences (series 7 image 39) could be a minor acute stroke. Leonel Mc MD Assessment and Plan Assessment and Plan Sp stroke Seizure Acute VDRF - resolved COPD, chronic bronchits No e/o PNA clinically or radiologically Sputum colonised with Kleb - no indication for abx at this point - cont to observe off abx Stephanie uNnez MD Nov 25, 2017 19:22
[2017-11-25] MEDS: chlordiazePOXIDE 25 MG CAP PO SCH (20:07)
[2017-11-25] MEDS ORDERED: METOPROLOL TARTRATE 50 MG TAB PO SCH (21:00)
[2017-11-26] VITALS: PULSE 62
[2017-11-26 00:14] VITALS: BP 133/80; PULSE 86; RESP 20; TEMP 97.3; O2SAT 98
[2017-11-26 04:00] VITALS: BP 113/60; PULSE 52; PULSE 56; RESP 18; TEMP 97.8; O2SAT 99
[2017-11-26] MEDS: CHLORHEXIDINE GLUCONATE 2 % 1 PACK (2 CLOTHS) TOP SCH (04:00)
[2017-11-26] MEDS: levETIRAcetam 500 MG TAB OG-TUBE SCH (05:12)
[2017-11-26] MEDS: INSULIN ASPART SUPPLEMENTAL SCALE SQ SCH (05:13)
[2017-11-26] MEDS: SODIUM CHLORIDE 0.9% FLUSH 10 ML FLUSH IV FLUSH SCH (07:46)
[2017-11-26] MEDS: CHLORHEXIDINE 0.12% (ORAL KIT) 15 ML CUP MT SCH (08:00)
[2017-11-26 08:07] VITALS: BP 115/67; PULSE 58; RESP 17; TEMP 97.9; O2SAT 97
[2017-11-26 08:12] LABS: AUTOMATED NEUTROPHIL # 2.8 TH/MM3 (1.8-7.7); BASOPHIL % 0.5 % (0.0-2.0); EOSINOPHIL # 0.1 TH/MM3 (0-0.4); EOSINOPHIL % 1.2 % (0.0-4.0); HEMATOCRIT 39.6 % (39.0-51.0); HEMOGLOBIN 13.4 GM/DL (13.0-17.0); LYMPH % 42.8 % (9.0-44.0); LYMPHOCYTE # 2.8 TH/MM3 (1.0-4.8); MEAN CELL VOLUME 95.4 FL (80.0-100.0); MEAN CORPUSCULAR HEMOGLOBIN 32.3 PG (27.0-34.0); MEAN CORPUSCULAR HGB CONC 33.9 % (32.0-36.0); MEAN PLATELET VOLUME 9.4 FL (7.0-11.0); MONO % 11.5 % (0.0-8.0); MONOCYTE # 0.7 TH/MM3 (0-0.9); PLATELET COUNT 173 TH/MM3 (150-450); RED BLOOD COUNT 4.15 MIL/MM3 (4.50-5.90); RED CELL DISTRIBUTION WIDTH 12.9 % (11.6-17.2); WHITE BLOOD COUNT 6.5 TH/MM3 (4.0-11.0)
[2017-11-26] MEDS: ASPIRIN 81 MG CHEW TAB CHEW SCH (08:23)
[2017-11-26] MEDS: FAMOTIDINE 20 MG TAB TUBE SCH (08:23)
[2017-11-26] MEDS: INSULIN ASPART 1,000 UNITS/10 ML VIAL SQ SCH (08:24)
[2017-11-26] MEDS: INSULIN DETEMIR 100 UNITS/ML VIAL SQ SCH (08:24)
[2017-11-26 08:28] VITALS: BP 115/67; PULSE 58; RESP 17; TEMP 97.9; O2SAT 97
[2017-11-26] MEDS ORDERED: REMOVE OLD PATCH T-DERMAL SCH (09:00)
[2017-11-26] MEDS ORDERED: NICOTINE 21 MG/24 HR PATCH T-DERMAL SCH (09:00)
[2017-11-26] MEDS ORDERED: METOPROLOL TARTRATE 25 MG TAB PO SCH (09:00)
[2017-11-26 09:01] LABS: BANDS 8 % (0-6); LYMPHOCYTES 40 % (9-44); METAMYELOCYTES 1 % (0-1); MONOCYTES 9 % (0-8); NEUTROPHIL # MANUAL DIFF 3.3 TH/MM3 (1.8-7.7); POLYS (SEG NEUTROPHILS) 42 % (16-70)
[2017-11-26 09:02] LABS: BICARBONATE 27.8 MEQ/L (21.0-32.0); BLOOD UREA NITROGEN 10 MG/DL (7-18); CALCIUM 9.3 MG/DL (8.5-10.1); CHLORIDE 106 MEQ/L (98-107); CREATININE 0.87 MG/DL (0.60-1.30); GLOMERULAR FILTRATION RATE 89 ML/MIN (>89); GLUCOSE,RANDOM 116 MG/DL (74-106); SODIUM (NA) 140 MEQ/L (136-145)
[2017-11-26] MEDS ORDERED: LEVE500 OG-TUBE (09:10)
[2017-11-26] MEDS ORDERED: NOVOLOGP2 SQ (09:10)
[2017-11-26] MEDS ORDERED: METO25TA3 PO (09:10)
[2017-11-26] MEDS ORDERED: LEVEMIR SQ (09:10)
[2017-11-26] MEDS ORDERED: NICO21DI25 T-DERMAL (09:10)
[2017-11-26] MEDS ORDERED: ASPI81 CHEW (09:10)
--- NOTE | 2017-11-26 09:11 | HHI.DCPOC ---
Discharge Care Plan Diagnosis: (1) Acute hypoxemic respiratory failure (2) Atrial tachycardia (3) Seizure due to alcohol withdrawal (4) Uncontrolled diabetes mellitus (5) CVA (cerebral vascular accident) (6) Alcoholism /alcohol abuse (7) Tobacco abuse (8) Hyponatremia (9) Hypokalemia (10) COPD (chronic obstructive pulmonary disease) (11) New onset type 2 diabetes mellitus Goals to Promote Your Health * To prevent worsening of your condition and complications * To maintain your health at the optimal level Directions to Meet Your Goals Take your medications as prescribed Follow your dietary instruction Follow activity as directed Keep your appointments as scheduled Take your immunizations and boosters as scheduled If your symptoms worsen call your PCP, if no PCP go to Urgent Care Center or Emergency Room Smoking is Dangerous to Your Health. Avoid second hand smoke Call the 24-hour hour crisis hotline for domestic abuse at Paddy Tubbs MD Nov 26, 2017 09:11
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
[2017-11-26 09:54] LABS: ALBUMIN 3.1 GM/DL (3.4-5.0); ALKALINE PHOSPHATASE 86 U/L (45-117); ALT (GPT) 50 U/L (12-78); AST (GOT) 49 U/L (15-37); MAGNESIUM 2.1 MG/DL (1.5-2.5); PHOSPHORUS 3.5 MG/DL (2.5-4.9); TOTAL BILIRUBIN ADULT 0.3 MG/DL (0.2-1.0); TOTAL PROTEIN 6.7 GM/DL (6.4-8.2); TROPONIN I LESS THAN 0.02 NG/ML (0.02-0.05)
[2017-11-26] MEDS ORDERED: BIOM30MI (10:29)
[2017-11-26] MEDS ORDERED: INSU1MIS15 SQ (10:29)
[2017-11-26] MEDS ORDERED: GLUCTES12 (10:29)
[2017-11-26] MEDS ORDERED: LANCETS1 MI1 (10:29)
--- NOTE | 2017-11-26 16:08 | EKG ---
Date Performed: 11/25/2017 Time Performed: 15:00:24 PTAGE: 62 years EKG: Probable atrial tachycardia. Since previous tracing, no significant change noted Borderline ECG PREVIOUS TRACING : 11/19/2017 12.51.03 DOCTOR: Marquita Ferrara Interpretating Date/Time 11/26/2017 16:07:41
== END 2017-11-26 11:52 | disposition home or self-care (01) | DRG 64 ==
LOC: NEPC 08:53 → NEDA 11:36 → NEPHCDU 15:44 → N03B 11-19 13:08 → N04A 11-23 10:57
PROVIDERS: ADMIT Hospitalist; ATTEND Hospitalist
PROC: 0BH18EZ Insertion of Endotracheal Airway into Trachea, Via Natural or Artificial Opening Endoscopic (ICD-10-PCS; principal; 2017-11-19)
PROC: 5A1935Z Respiratory Ventilation, Less than 24 Consecutive Hours (ICD-10-PCS; 2017-11-19)
DX: I63.9 Cerebral infarction, unspecified (principal); E11.00 Type 2 diabetes mellitus with hyperosmolarity without nonketotic hyperglycemic-hyperosmolar coma (NKHHC); J96.01 Acute respiratory failure with hypoxia; G93.40 Encephalopathy, unspecified; E87.1 Hypo-osmolality and hyponatremia; E11.65 Type 2 diabetes mellitus with hyperglycemia; I47.1 Supraventricular tachycardia; F10.230 Alcohol dependence with withdrawal, uncomplicated; G40.89 Other seizures; I10 Essential (primary) hypertension; J44.9 Chronic obstructive pulmonary disease, unspecified; F17.210 Nicotine dependence, cigarettes, uncomplicated; E87.6 Hypokalemia; N40.0 Benign prostatic hyperplasia without lower urinary tract symptoms; E78.5 Hyperlipidemia, unspecified; F31.9 Bipolar disorder, unspecified; Z83.3 Family history of diabetes mellitus; Z59.0 Homelessness; Z23 Encounter for immunization
CPT/HCPCS: 36600; 70450; 70551; 71045; 72141; 80048; 80053; 80061; 81001; 82550; 82607; 82805; 82948; 83036; 83605; 83735; 84100; 84132; 84484; 85007; 85025; 85027; 85610; 85730; 87070; 87077; 87186; 87205; 90686; 93005; 93306; 93880; 94002; 94003; 94640; 94664; 95819; J0330; J1650; J1815; J1953; J2060; J3475; J3480; J7030; Q2038

== ENCOUNTER 2017-12-02 13:43 | Emergency (ER) | payer OTHER ==
[2017-12-02] MEDS: SODIUM CHLOR 0.9% 1000 ML INJ 1,000 ML IV (16:20)
[2017-12-02 16:58] LABS: AUTOMATED NEUTROPHIL # 5.4 TH/MM3 (1.8-7.7); BASOPHIL # 0.1 TH/MM3 (0-0.2); BASOPHIL % 0.7 % (0.0-2.0); EOSINOPHIL # 0.1 TH/MM3 (0-0.4); EOSINOPHIL % 0.9 % (0.0-4.0); HEMATOCRIT 40.7 % (39.0-51.0); HEMO FLAGS DIFF FINAL; HEMOGLOBIN 13.8 GM/DL (13.0-17.0); LYMPH % 33.1 % (9.0-44.0); MEAN CELL VOLUME 94.1 FL (80.0-100.0); MEAN CORPUSCULAR HEMOGLOBIN 31.9 PG (27.0-34.0); MEAN CORPUSCULAR HGB CONC 33.9 % (32.0-36.0); MEAN PLATELET VOLUME 9.3 FL (7.0-11.0); MONO % 5.6 % (0.0-8.0); MONOCYTE # 0.5 TH/MM3 (0-0.9); NEUT % 59.7 % (16.0-70.0); PLATELET COUNT 181 TH/MM3 (150-450); RED BLOOD COUNT 4.33 MIL/MM3 (4.50-5.90); RED CELL DISTRIBUTION WIDTH 12.6 % (11.6-17.2); WHITE BLOOD COUNT 9.1 TH/MM3 (4.0-11.0)
[2017-12-02 17:18] LABS: ALBUMIN 3.1 GM/DL (3.4-5.0); ANION GAP 8 MEQ/L (5-15); AST (GOT) 33 U/L (15-37); BICARBONATE 24.8 MEQ/L (21.0-32.0); BLOOD UREA NITROGEN 10 MG/DL (7-18); CALCIUM 9.1 MG/DL (8.5-10.1); CHLORIDE 103 MEQ/L (98-107); CREATININE 0.92 MG/DL (0.60-1.30); GLOMERULAR FILTRATION RATE 84 ML/MIN (>89); GLUCOSE,RANDOM 329 MG/DL (74-106); POTASSIUM 3.9 MEQ/L (3.5-5.1); SODIUM (NA) 136 MEQ/L (136-145)
[2017-12-02 17:22] LABS: ALKALINE PHOSPHATASE 133 U/L (45-117); ALT (GPT) 43 U/L (12-78); TOTAL BILIRUBIN ADULT 0.3 MG/DL (0.2-1.0); TOTAL PROTEIN 7.3 GM/DL (6.4-8.2)
== END 2017-12-02 18:57 | disposition home or self-care (01) ==
LOC: NEPC 13:43
DX: E11.65 Type 2 diabetes mellitus with hyperglycemia (principal); J44.9 Chronic obstructive pulmonary disease, unspecified; Z72.0 Tobacco use
CPT/HCPCS: 80053; 82010; 85025; 99284